=== PATIENT | male | born 1955 | race Caucasian/White ===

== ENCOUNTER 2017-07-03 20:52 | Observation (INO) | payer MEDICARE, MEDICAID ==
[2017-07-03] MEDS: NS 0.9% 1000 ML* 1,000 ML IV SCH (21:52)
[2017-07-03 22:22] LABS: Hematocrit 42 % (42-52); Hemoglobin 14.1 g/dl (14.0-18.0); Mean Corpuscular HGB Conc 34 g/dl (31-36); Mean Corpuscular Hemoglobin 32 pg (27-31); Mean Corpuscular Volume 96 fL (80-94); Mean Platelet Volume 9 um3 (7.4-10.4); Red Blood Count 4.37 10^6/ul (4.0-5.4); Red Cell Distribution Width 15 % (10.5-15); White Blood Count 9.2 10^3/ul (3.5-10.8)
[2017-07-03 22:37] LABS: Albumin 3.8 g/dL (3.2-5.2); BUN/Creatinine Ratio 13.5 (8-20); C Reactive Protein 2.68 mg/L (< 5.00); EGFR African American 93.4 (>60); EGFR Non-African American 72.6 (>60); Globulin 2.5 g/dL (2-4); Magnesium 1.8 mg/dL (1.9-2.7); Potassium 3.8 mmol/L (3.5-5.0); Total Bilirubin 0.4 mg/dL (0.2-1.0); Total Protein 6.3 g/dL (6.4-8.9)
[2017-07-03 22:42] LABS: Troponin I 0.04 ng/mL (<0.04)
[2017-07-03] MEDS ORDERED: Iohexol 300* (CONTRAST) 10 ML SDV IV ONE (22:49)
[2017-07-04 00:35] LABS: Urine Bacteria Absent (Absent); Urine Bilirubin Negative (Negative); Urine Glucose Negative (Negative); Urine Nitrite Negative (Negative)
[2017-07-04] MEDS ORDERED: Acetaminophen TAB* 325 MG PO PRN (00:59)
[2017-07-04] MEDS ORDERED: Albuterol 2.5 MG/3 ML NEB.SOL* (0.083%) INH PRN (00:59)
[2017-07-04] MEDS ORDERED: Magnesium Sulfate 2 GM IV* 2 GM/50 ML BAG IVPB ONE (01:00)
[2017-07-04] MEDS ORDERED: NS 0.9% 1000 ML* 1,000 ML IV SCH (01:00)
[2017-07-04] MEDS ORDERED: Nicotine Inhaler* 10 MG AMP INH PRN (01:00)
[2017-07-04] MEDS ORDERED: Ondansetron INJ* 2 MG/ML VIAL IV PRN (01:00)
[2017-07-04] MEDS ORDERED: Melatonin (NF) 3 MG TAB PO PRN (01:00)
--- NOTE | 2017-07-04 03:12 | ED ---
Anya Barajas Abhishek, scribed for Wolfgang Olvera on 07/03/17 at 2232 . Neurological HPI - HPI Summary HPI Summary: This patient is a 62 year old M presenting to [facility] with a chief complaint of weakness since this morning. The CC is described as constant. The patient rates the pain 4/10 in severity. Pt states pain by movement. Symptoms aggravated by nothing. Symptoms alleviated by nothing. Patient reports fatigue, patient denies fevers, CP, abd pain, CHERRY, cough, N/V/D. PMHx of cardiac arrest, angioplasty and angina. Pt states no PMHx of COPD, and asthma. - History of Current Complaint Chief Complaint: EDWeakness Stated Complaint: WEAKNESS Time Seen by Provider: 07/03/17 22:03 Hx Obtained From: Patient Onset/Duration: Started hours ago - since this morning, Still Present Timing: Constant Pain Intensity: 4 Pain Scale Used: 0-10 Numeric Character: Weak, Other: - fatigue Aggravating: Nothing Alleviating: Nothing Associated Signs and Symptoms: Positive: Weakness. Negative: Headache, Nausea/ Vomiting, Fever, Diarrhea, Chest Pain - Additional Pertinent History Primary Care Physician: [id number] - Allergy/Home Medications Allergies/Adverse Reactions: Allergies Allergy/AdvReac Type Severity Reaction Status Date / Time No Known Allergies Allergy Verified 04/20/13 10:27 PMH/Surg Hx/FS Hx/Imm Hx Endocrine/Hematology History: Denies: Hx Diabetes, Hx Thyroid Disease, Hx Anemia Cardiovascular History: Reports: Hx Angina, Hx Angioplasty, Hx Cardiac Arrest, Hx Hypertension Denies: Hx Aneurysm, Hx Auto Implanted Cardiovert Defib, Hx Hypercholesterolemia, Hx Peripheral Vascular Disease Respiratory History: Denies: Hx Asthma, Hx Chronic Obstructive Pulmonary Disease (COPD) GI History: Reports: Other GI Disorders Denies: Hx Ulcer History: Reports: Hx Benign Prostatic Hyperplasia Musculoskeletal History: Denies: Hx Arthritis, Hx Osteoporosis Sensory History: Denies: Hx Cataracts, Hx Contacts or Glasses, Hx Glaucoma Opthamlomology History: Denies: Hx Cataracts, Hx Contacts or Glasses, Hx Glaucoma Neurological History: Reports: Hx Headaches - daily headaches Denies: Hx Seizures, Hx Transient Ischemic Attacks (TIA) Psychiatric History: Reports: Hx Anxiety, Hx Depression - Surgical History Surgery Procedure, Year, and Place: hernia x3. Fistula. Heart Bypass 2005 - Immunization History Date of Tetanus Vaccine: UTD Date of Influenza Vaccine: NO Infectious Disease History: No Infectious Disease History: Denies: Hx Clostridium Difficile, Hx Hepatitis, Hx Human Immunodeficiency Virus (HIV), Hx of Known/Suspected MRSA, Hx Shingles, Hx Tuberculosis, Hx Known/ Suspected VRE, Hx Known/Suspected VRSA, History Other Infectious Disease, Traveled Outside the [place] in Last 30 Days - Family History Known Family History: Positive: Cardiac Disease - mother and father, Hypertension - father, Other - CVA in father Family History: NON CONTRIBUTORY - Social History Alcohol Use: Rare Substance Use Type: Reports: None, Prescribed Hx Tobacco Use: Yes Smoking Status (MU): Heavy Every Day Tobacco Smoker Type: Cigarettes Amount Used/How Often: 1ppd Review of Systems Positive: Fatigue. Negative: Fever Eyes: Negative ENT: Negative Negative: Chest Pain Negative: Cough Negative: Abdominal Pain, Vomiting, Diarrhea, Nausea Genitourinary: Negative Musculoskeletal: Negative Skin: Negative Positive: Weakness. Negative: Headache Psychological: Normal All Other Systems Reviewed And Are Negative: Yes Physical Exam - Summary Physical Exam Summary: Appearance: Well appearing, no pain distress Skin: warm, dry, reflects adequate perfusion Head/face: normal Eyes: EOMI, BASHIR ENT: Dry mucous membranes Neck: supple, nontender Respiratory: CTA, breath sounds present Cardiovascular: RRR, pulses symmetrical Abdomen: Tenderness in the left lower quadrant Bowel: present Musculoskeletal: normal, strength/ROM intact Neuro: normal, sensory motor intact, A&Ox3 Triage Information Reviewed: Yes Vital Signs On Initial Exam: Initial Vitals Temp Pulse Resp BP Pulse Ox 98.8 F 76 12 128/70 95 07/03/17 21:00 07/03/17 21:00 07/03/17 21:00 07/03/17 21:00 07/03/17 21:00 Vital Signs Reviewed: Yes - Alvaro Coma Scale Coma Scale Total: 15 Diagnostics - Vital Signs Vital Signs Temp Pulse Resp BP Pulse Ox 07/03/17 21:14 95 07/03/17 21:00 98.8 F 76 12 128/70 95 - Laboratory Lab Results: Lab Results 07/03/17 07/03/17 07/03/17 Range/Units 22:15 22:15 22:15 WBC (3.5-10.8) 10^3/ul RBC (4.0-5.4) 10^6/ul Hgb (14.0-18.0) g/dl Hct (42-52) % MCV (80-94) fL MCH (27-31) pg MCHC (31-36) g/dl RDW (10.5-15) % Plt Count (150-450) 10^3/ul MPV (7.4-10.4) um3 Neut % (Auto) (38-83) % Lymph % (Auto) (25-47) % [place] % (Auto) (1-9) % Eos % (Auto) (0-6) % Baso % (Auto) (0-2) % Absolute Neuts (auto) (1.5-7.7) 10^3/ul Absolute Lymphs (auto) (1.0-4.8) 10^3/ul Absolute Monos (auto) (0-0.8) 10^3/ul Absolute Eos (auto) (0-0.6) 10^3/ul Absolute Basos (auto) (0-0.2) 10^3/ul Absolute Nucleated RBC 10^3/ul Nucleated RBC % INR (Anticoag Therapy) 0.92 (0.89-1.11) APTT 30.0 (26.0-36.3) seconds Sodium 138 (133-145) mmol/L Potassium 3.8 (3.5-5.0) mmol/L Chloride 106 (101-111) mmol/L Carbon Dioxide 23 (22-32) mmol/L Anion Gap 9 (2-11) mmol/L BUN 14 (6-24) mg/dL Creatinine 1.04 (0.67-1.17) mg/dL Est GFR ( Amer) 93.4 (>60) Est GFR (Non-Af Amer) 72.6 (>60) BUN/Creatinine Ratio 13.5 (8-20) Glucose 94 (70-100) mg/dL Lactic Acid (0.5-2.0) mmol/L Calcium 9.0 (8.6-10.3) mg/dL Magnesium 1.8 L (1.9-2.7) mg/dL Total Bilirubin 0.40 (0.2-1.0) mg/dL AST 12 L (13-39) U/L ALT 11 (7-52) U/L Alkaline Phosphatase 67 (34-104) U/L Total Creatine Kinase 59 (10-223) U/L CK-MB (CK-2) 2.8 (0.6-6.3) ng/mL Troponin I 0.04 H* (<0.04) ng/mL C-Reactive Protein 2.68 (< 5.00) mg/L B-Natriuretic Peptide 93 ( - 100) pg/mL Total Protein 6.3 L (6.4-8.9) g/dL Albumin 3.8 (3.2-5.2) g/dL Globulin 2.5 (2-4) g/dL Albumin/Globulin Ratio 1.5 (1-3) Lipase 15 (11.0-82.0) U/L TSH 1.00 (0.34-5.60) mcIU/mL Urine Color Urine Appearance Urine pH (5-9) Ur Specific [place] (1.010-1.030) Urine Protein (Negative) Urine Ketones (Negative) Urine Blood (Negative) Urine Nitrate (Negative) Urine Bilirubin (Negative) Urine Urobilinogen (Negative) Ur Leukocyte Esterase (Negative) Urine WBC (Auto) (Absent) Urine RBC (Auto) (Absent) Urine Bacteria (Absent) Urine Glucose (Negative) 07/03/17 07/03/17 07/04/17 Range/Units 22:15 22:15 00:17 WBC 9.2 (3.5-10.8) 10^3/ul RBC 4.37 (4.0-5.4) 10^6/ul Hgb 14.1 (14.0-18.0) g/dl Hct 42 (42-52) % MCV 96 H (80-94) fL MCH 32 H (27-31) pg MCHC 34 (31-36) g/dl RDW 15 (10.5-15) % Plt Count 197 (150-450) 10^3/ul MPV 9 (7.4-10.4) um3 Neut % (Auto) 60.9 (38-83) % Lymph % (Auto) 26.1 (25-47) % [place] % (Auto) 10.3 H (1-9) % Eos % (Auto) 1.8 (0-6) % Baso % (Auto) 0.9 (0-2) % Absolute Neuts (auto) 5.6 (1.5-7.7) 10^3/ul Absolute Lymphs (auto) 2.4 (1.0-4.8) 10^3/ul Absolute Monos (auto) 0.9 H (0-0.8) 10^3/ul Absolute Eos (auto) 0.2 (0-0.6) 10^3/ul Absolute Basos (auto) 0.1 (0-0.2) 10^3/ul Absolute Nucleated RBC 0 10^3/ul Nucleated RBC % 0 INR (Anticoag Therapy) (0.89-1.11) APTT (26.0-36.3) seconds Sodium (133-145) mmol/L Potassium (3.5-5.0) mmol/L Chloride (101-111) mmol/L Carbon Dioxide (22-32) mmol/L Anion Gap (2-11) mmol/L BUN (6-24) mg/dL Creatinine (0.67-1.17) mg/dL Est GFR ( Amer) (>60) Est GFR (Non-Af Amer) (>60) BUN/Creatinine Ratio (8-20) Glucose (70-100) mg/dL Lactic Acid 2.4 H* (0.5-2.0) mmol/L Calcium (8.6-10.3) mg/dL Magnesium (1.9-2.7) mg/dL Total Bilirubin (0.2-1.0) mg/dL AST (13-39) U/L ALT (7-52) U/L Alkaline Phosphatase (34-104) U/L Total Creatine Kinase (10-223) U/L CK-MB (CK-2) (0.6-6.3) ng/mL Troponin I (<0.04) ng/mL C-Reactive Protein (< 5.00) mg/L B-Natriuretic Peptide ( - 100) pg/mL Total Protein (6.4-8.9) g/dL Albumin (3.2-5.2) g/dL Globulin (2-4) g/dL Albumin/Globulin Ratio (1-3) Lipase (11.0-82.0) U/L TSH (0.34-5.60) mcIU/mL Urine Color [place] Urine Appearance Clear Urine pH 5.0 (5-9) Ur Specific [place] > 1.060 H (1.010-1.030) Urine Protein Negative (Negative) Urine Ketones Trace H (Negative) Urine Blood 1+ H (Negative) Urine Nitrate Negative (Negative) Urine Bilirubin Negative (Negative) Urine Urobilinogen Negative (Negative) Ur Leukocyte Esterase Negative (Negative) Urine WBC (Auto) Trace(0-5/hpf) (Absent) Urine RBC (Auto) 3+(>10/hpf) H (Absent) Urine Bacteria Absent (Absent) Urine Glucose Negative (Negative) Result Diagrams: 07/03/17 22:15 07/03/17 22:15 Lab Statement: Any lab studies that have been ordered have been reviewed, and results considered in the medical decision making process. - CT CT A/P CT Interpretation Completed By: Radiologist - CT A/P reveals Colitis. ED physician has reviewed the radiology report and agrees. Course/Dx - Course Course Of Treatment: This patient is a 62 year old M presenting to [facility] with a chief complaint of weakness since this morning. The CC is described as constant. The patient rates the pain 4/10 in severity. Patient reports fatigue. Patient denies fevers, CP, abd pain, CHERRY, cough, N/V/D. CT A/P reveals Colitis. We discussed patient care with Dr. Gasca and he recommended admitting the pt. Patient will be admitted with dizziness, positive troponin and AC. Pt is agreeable with this plan. - Differential Dx Differential Diagnoses Neuro: Positive: Hypovolemia, Other - dizziness/ diverticulitis/acs - Diagnoses Provider Diagnoses: Dizziness, Elevated troponin, ACS (acute coronary syndrome) - Physician Notifications Discussed Care Of Patient With: Tereso Gasca Instructed by Provider To: Admit As Inpatient Discharge - Discharge Plan Condition: Stable Disposition: ADMITTED TO [facility] The documentation as recorded by the Ayna neal Abhishek accurately reflects the service I personally performed and the decisions made by , Wolfgang Olvera.
[2017-07-04] MEDS: NS 0.9% 1000 ML* 1,000 ML IV SCH (03:42)
[2017-07-04] MEDS ORDERED: Mouth Piece, Nicotine* 1 EACH CARTRIDGE INH ONE (05:00)
--- NOTE | 2017-07-04 05:56 | HP ---
H&P (Free Text) History and Physical: PCP: Kristin Hatch MD Date/Time: 07/04/2017 0055 CC: fatigue HPI: Mr Culver is a 62YO male HX CAD, bipolar disorder, PTSD relates he went to be 07/02 feeling his usual, but awoke the morning of 07/03 with extreme fatigue without malaise. He took 2 naps during the day which did not alleviate his fatigue. Upon awakening from the 2nd nap he had a brief period of total body paralysis with lucidity which rapidly spontaneously resolved. He has had period of fatigue similar to this in the past lasting up to 4 days. He had some brief L axillary aching that spontaneously resolved lasting only a few minutes, but denies F/C, sweats, N/V, diarrhea, abdominal pain, palpitations, light- headedness, cough, congestion, SOB, earache, sore throat, changes in bowel/ bladder, changes in speech/swallow, or other issues. PMedHx CAD/4vCABG/MO/stents HTN HLD bipolar disorder PTSD Ambulatory Orders ALPRAZolam TAB* [Xanax TAB*] 1 mg PO TID PRN 08/11/15 Aspirin Low Dose CHEW TAB* [Aspirin Low Dose TAB*] 81 mg PO DAILY 08/11/15 Lisinopril TAB* [Prinivil TAB*] 20 mg PO DAILY 08/11/15 Metoprolol Succinate XL TAB* [Toprol XL TAB*] 50 mg PO DAILY 08/11/15 Nitroglycerin TAB 0.4 MG* 0.4 mg SL Q5M PRN 08/11/15 Pantoprazole Sodium 40 mg PO DAILY 08/11/15 Simvastatin TAB(NF) [Zocor(NF)] 20 mg PO 1700 08/11/15 lamoTRIgine TAB(*) [LaMICtal TAB(*)] 200 mg PO BID 08/11/15 Allergies No Known Allergies Allergy (Verified 04/20/13 10:27) PSurgHx 4vCABG cardiac stent B inguinal hernia repairs Lasik OU SocHx: 1.5PPD cigarettes [id number], denies alcohol & recreational drugs; , lives alone; 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; full code status FamHx: positive for CAD, DM, prostate CA ROS: as above, otherwise reviewed and all were negative vitals: Vital Signs Temp 36.6 C 07/04/17 04:37 Pulse 73 07/04/17 04:37 Resp 16 07/04/17 04:37 BP 133/73 07/04/17 04:37 Pulse Ox 98 07/04/17 04:37 Intake & Output 07/03/17 07/03/17 07/04/17 11:59 23:59 11:59 Weight 95.254 kg 95.368 kg Constitutional: NAD, normally developed, obese white male HEENM: atraumatic; sclera/conjunctiva: anicteric/clear; hearing: clinically intact; oropharynx: clear, mucosa tacky Neck: soft tissue: non-tender; thyroid: normal Pulmonary: clear to auscultation bilaterally, good aeration, no accessory muscle use CV: RR/RR, normal S1S2, no carotid bruit, no jugular venous distention, 2+ B DP/ PT, no edema Abdominal: soft, non-distended, non-tender, no rebound/guarding/rigidity, normoactive bowel sounds, no hepatosplenomegaly or masses, no costovertebral angle tenderness Musculoskeletal: general: grossly intact; gait: stable Integumental: normal appearance and texture of exposed skin Psychiatric orientation: AA&O to PPS affect: flat mood: cooperative/depressed eye contact: poor content: reliable responses: mildly slowed insight: poor Testing: Lab Results 07/03/17 07/03/17 07/03/17 Range/Units 22:15 22:15 22:15 WBC (3.5-10.8) 10^3/ul RBC (4.0-5.4) 10^6/ul Hgb (14.0-18.0) g/dl Hct (42-52) % MCV (80-94) fL MCH (27-31) pg MCHC (31-36) g/dl RDW (10.5-15) % Plt Count (150-450) 10^3/ul MPV (7.4-10.4) um3 Neut % (Auto) (38-83) % Lymph % (Auto) (25-47) % [place] % (Auto) (1-9) % Eos % (Auto) (0-6) % Baso % (Auto) (0-2) % Absolute Neuts (auto) (1.5-7.7) 10^3/ul Absolute Lymphs (auto) (1.0-4.8) 10^3/ul Absolute Monos (auto) (0-0.8) 10^3/ul Absolute Eos (auto) (0-0.6) 10^3/ul Absolute Basos (auto) (0-0.2) 10^3/ul Absolute Nucleated RBC 10^3/ul Nucleated RBC % INR (Anticoag Therapy) 0.92 (0.89-1.11) APTT 30.0 (26.0-36.3) seconds Sodium 138 (133-145) mmol/L Potassium 3.8 (3.5-5.0) mmol/L Chloride 106 (101-111) mmol/L Carbon Dioxide 23 (22-32) mmol/L Anion Gap 9 (2-11) mmol/L BUN 14 (6-24) mg/dL Creatinine 1.04 (0.67-1.17) mg/dL Est GFR ( Amer) 93.4 (>60) Est GFR (Non-Af Amer) 72.6 (>60) BUN/Creatinine Ratio 13.5 (8-20) Glucose 94 (70-100) mg/dL Lactic Acid (0.5-2.0) mmol/L Calcium 9.0 (8.6-10.3) mg/dL Magnesium 1.8 L (1.9-2.7) mg/dL Total Bilirubin 0.40 (0.2-1.0) mg/dL AST 12 L (13-39) U/L ALT 11 (7-52) U/L Alkaline Phosphatase 67 (34-104) U/L Total Creatine Kinase 59 (10-223) U/L CK-MB (CK-2) 2.8 (0.6-6.3) ng/mL Troponin I 0.04 H* (<0.04) ng/mL C-Reactive Protein 2.68 (< 5.00) mg/L B-Natriuretic Peptide 93 ( - 100) pg/mL Total Protein 6.3 L (6.4-8.9) g/dL Albumin 3.8 (3.2-5.2) g/dL Globulin 2.5 (2-4) g/dL Albumin/Globulin Ratio 1.5 (1-3) Lipase 15 (11.0-82.0) U/L TSH 1.00 (0.34-5.60) mcIU/mL Urine Color Urine Appearance Urine pH (5-9) Ur Specific [place] (1.010-1.030) Urine Protein (Negative) Urine Ketones (Negative) Urine Blood (Negative) Urine Nitrate (Negative) Urine Bilirubin (Negative) Urine Urobilinogen (Negative) Ur Leukocyte Esterase (Negative) Urine WBC (Auto) (Absent) Urine RBC (Auto) (Absent) Urine Bacteria (Absent) Urine Glucose (Negative) 07/03/17 07/03/17 07/04/17 Range/Units 22:15 22:15 00:17 WBC 9.2 (3.5-10.8) 10^3/ul RBC 4.37 (4.0-5.4) 10^6/ul Hgb 14.1 (14.0-18.0) g/dl Hct 42 (42-52) % MCV 96 H (80-94) fL MCH 32 H (27-31) pg MCHC 34 (31-36) g/dl RDW 15 (10.5-15) % Plt Count 197 (150-450) 10^3/ul MPV 9 (7.4-10.4) um3 Neut % (Auto) 60.9 (38-83) % Lymph % (Auto) 26.1 (25-47) % [place] % (Auto) 10.3 H (1-9) % Eos % (Auto) 1.8 (0-6) % Baso % (Auto) 0.9 (0-2) % Absolute Neuts (auto) 5.6 (1.5-7.7) 10^3/ul Absolute Lymphs (auto) 2.4 (1.0-4.8) 10^3/ul Absolute Monos (auto) 0.9 H (0-0.8) 10^3/ul Absolute Eos (auto) 0.2 (0-0.6) 10^3/ul Absolute Basos (auto) 0.1 (0-0.2) 10^3/ul Absolute Nucleated RBC 0 10^3/ul Nucleated RBC % 0 INR (Anticoag Therapy) (0.89-1.11) APTT (26.0-36.3) seconds Sodium (133-145) mmol/L Potassium (3.5-5.0) mmol/L Chloride (101-111) mmol/L Carbon Dioxide (22-32) mmol/L Anion Gap (2-11) mmol/L BUN (6-24) mg/dL Creatinine (0.67-1.17) mg/dL Est GFR ( Amer) (>60) Est GFR (Non-Af Amer) (>60) BUN/Creatinine Ratio (8-20) Glucose (70-100) mg/dL Lactic Acid 2.4 H* (0.5-2.0) mmol/L Calcium (8.6-10.3) mg/dL Magnesium (1.9-2.7) mg/dL Total Bilirubin (0.2-1.0) mg/dL AST (13-39) U/L ALT (7-52) U/L Alkaline Phosphatase (34-104) U/L Total Creatine Kinase (10-223) U/L CK-MB (CK-2) (0.6-6.3) ng/mL Troponin I (<0.04) ng/mL C-Reactive Protein (< 5.00) mg/L B-Natriuretic Peptide ( - 100) pg/mL Total Protein (6.4-8.9) g/dL Albumin (3.2-5.2) g/dL Globulin (2-4) g/dL Albumin/Globulin Ratio (1-3) Lipase (11.0-82.0) U/L TSH (0.34-5.60) mcIU/mL Urine Color [place] Urine Appearance Clear Urine pH 5.0 (5-9) Ur Specific [place] > 1.060 H (1.010-1.030) Urine Protein Negative (Negative) Urine Ketones Trace H (Negative) Urine Blood 1+ H (Negative) Urine Nitrate Negative (Negative) Urine Bilirubin Negative (Negative) Urine Urobilinogen Negative (Negative) Ur Leukocyte Esterase Negative (Negative) Urine WBC (Auto) Trace(0-5/hpf) (Absent) Urine RBC (Auto) 3+(>10/hpf) H (Absent) Urine Bacteria Absent (Absent) Urine Glucose Negative (Negative) 07/04/17 07/04/17 Range/Units 01:00 01:00 WBC (3.5-10.8) 10^3/ul RBC (4.0-5.4) 10^6/ul Hgb (14.0-18.0) g/dl Hct (42-52) % MCV (80-94) fL MCH (27-31) pg MCHC (31-36) g/dl RDW (10.5-15) % Plt Count (150-450) 10^3/ul MPV (7.4-10.4) um3 Neut % (Auto) (38-83) % Lymph % (Auto) (25-47) % [place] % (Auto) (1-9) % Eos % (Auto) (0-6) % Baso % (Auto) (0-2) % Absolute Neuts (auto) (1.5-7.7) 10^3/ul Absolute Lymphs (auto) (1.0-4.8) 10^3/ul Absolute Monos (auto) (0-0.8) 10^3/ul Absolute Eos (auto) (0-0.6) 10^3/ul Absolute Basos (auto) (0-0.2) 10^3/ul Absolute Nucleated RBC 10^3/ul Nucleated RBC % INR (Anticoag Therapy) (0.89-1.11) APTT (26.0-36.3) seconds Sodium (133-145) mmol/L Potassium (3.5-5.0) mmol/L Chloride (101-111) mmol/L Carbon Dioxide (22-32) mmol/L Anion Gap (2-11) mmol/L BUN (6-24) mg/dL Creatinine (0.67-1.17) mg/dL Est GFR ( Amer) (>60) Est GFR (Non-Af Amer) (>60) BUN/Creatinine Ratio (8-20) Glucose (70-100) mg/dL Lactic Acid 1.0 (0.5-2.0) mmol/L Calcium (8.6-10.3) mg/dL Magnesium (1.9-2.7) mg/dL Total Bilirubin (0.2-1.0) mg/dL AST (13-39) U/L ALT (7-52) U/L Alkaline Phosphatase (34-104) U/L Total Creatine Kinase (10-223) U/L CK-MB (CK-2) (0.6-6.3) ng/mL Troponin I 0.04 H* (<0.04) ng/mL C-Reactive Protein (< 5.00) mg/L B-Natriuretic Peptide ( - 100) pg/mL Total Protein (6.4-8.9) g/dL Albumin (3.2-5.2) g/dL Globulin (2-4) g/dL Albumin/Globulin Ratio (1-3) Lipase (11.0-82.0) U/L TSH (0.34-5.60) mcIU/mL Urine Color Urine Appearance Urine pH (5-9) Ur Specific [place] (1.010-1.030) Urine Protein (Negative) Urine Ketones (Negative) Urine Blood (Negative) Urine Nitrate (Negative) Urine Bilirubin (Negative) Urine Urobilinogen (Negative) Ur Leukocyte Esterase (Negative) Urine WBC (Auto) (Absent) Urine RBC (Auto) (Absent) Urine Bacteria (Absent) Urine Glucose (Negative) ECG, personally reviewed: NSR rate 70, non-specific ST-T changes diffusely; similar to comparison 08/01/2016 CXR, personally reviewed: stigmata of COPD; no acute process Impression: 62M presenting with severe fatigue found to have a lactic acid of 2.4 & troponin of 0.4 w/ HX CAD DIAGNOSIS & PLAN Primary fatigue : unclear etiology, suspect depression : consider psychiatry consult lactic acidosis, mild : resolved w/ IVFs elevated troponin : trend : supplemental oxygen : recheck ECG in AM hypomagnesemia : replace Secondary CAD/4vCABG/MO/stents : review meds once reconciled HTN : review meds once reconciled HLD : review meds once reconciled bipolar disorder : review meds once reconciled PTSD : review meds once reconciled Admission Rational: observation for fatigue, elevated troponin DVTp: heparin SQ Code Status: full
[2017-07-04] MEDS ORDERED: Omeprazole CAP* 20 MG PO SCH (06:00)
--- NOTE | 2017-07-04 07:26 | RAD ---
HISTORY: Weakness COMPARISONS: August 01, 2016 VIEWS: 1: frontal portable view of the chest at 10:30 PM FINDINGS: LINES AND TUBES: None. CARDIOMEDIASTINAL SILHOUETTE: The cardiomediastinal silhouette is normal for portable technique. PLEURA: The costophrenic angles are sharp. No pleural abnormalities are noted. LUNG PARENCHYMA: The lungs are clear. ABDOMEN: The upper abdomen is clear. There is no subphrenic gas. BONES AND SOFT TISSUES: The patient is status post median sternotomy. IMPRESSION: NO ACTIVE CARDIOPULMONARY DISEASE.
--- NOTE | 2017-07-04 07:38 | RAD ---
CLINICAL HISTORY: Left lower quadrant pain COMPARISON: September 16, 2003 TECHNIQUE: Multiple contiguous axial CT scans were obtained of the abdomen and pelvis after the administration of intravenous contrast. Coronal and sagittal multiplanar reformations are submitted for review. Oral contrast was administered. Delayed images were obtained through the abdomen and pelvis. FINDINGS: LUNG BASES: The lung bases are clear. LIVER: The liver is diffusely low in attenuation compared to the spleen. There is a fluid attenuation rounded lesion of the left lobe of liver most consistent with a hepatic cyst.. BILE DUCTS: There is no intrahepatic or extrahepatic biliary dilatation. GALLBLADDER: The gallbladder is normal, without pericholecystic inflammatory change. PANCREAS: The pancreas is normal, without mass or ductal dilatation. SPLEEN: Normal in size and appearance. UPPER GI TRACT: Evaluation of the gastrointestinal tract is limited by incomplete gastric distention. The upper GI tract is unremarkable. SMALL BOWEL AND MESENTERY: The small bowel is normal in contour, course, and caliber. There is no obstruction or dilatation. COLON: There are multiple diverticula of the sigmoid colon. There is no pericolonic inflammatory change. There is focal mucosal thickening of the sigmoid colon. ADRENALS: Normal bilaterally. KIDNEYS: Simple renal cyst is noted on the right. There is no appreciable arthrosis masses. BLADDER: The bladder is smooth in contour. PELVIC ORGANS: The prostate gland is normal. The seminal vesicles are symmetric. AORTA: There is atherosclerosis of the abdominal aorta with ectasia of the infrarenal abdominal aorta to 2.6 cm. IVC: Unremarkable LYMPH NODES: There is no lymphadenopathy by size criteria. ABDOMINAL WALL: There is no evidence for abdominal wall hernia. BONES AND SOFT TISSUES: There are mild diffuse degenerative changes. OTHER: None IMPRESSION: 1. DIVERTICULOSIS, WITHOUT CT FINDINGS OF DIVERTICULITIS. 2. THERE IS FOCAL MUCOSAL THICKENING OF THE SIGMOID COLON WHICH MAY BE AN ARTIFACT OF INCOMPLETE DISTENTION. RECOMMEND CONSIDERATION OF CORRELATION WITH DIRECT VISUALIZATION. 3. THERE IS ECTASIA OF THE INFRARENAL ABDOMINAL AORTA UP TO 2.6 CM TRANSVERSELY.
[2017-07-04 08:06] LABS: Hematocrit 41 % (42-52); Hemoglobin 13.9 g/dl (14.0-18.0); Mean Corpuscular HGB Conc 34 g/dl (31-36); Mean Corpuscular Hemoglobin 33 pg (27-31); Mean Corpuscular Volume 96 fL (80-94); Mean Platelet Volume 9 um3 (7.4-10.4); Red Blood Count 4.27 10^6/ul (4.0-5.4); Red Cell Distribution Width 15 % (10.5-15); White Blood Count 8.9 10^3/ul (3.5-10.8)
[2017-07-04] MEDS ORDERED: Influenza VAC *QUAD* 2017-18* 0.5 ML SYRINGE IM ONE (09:00)
[2017-07-04] MEDS ORDERED: Docusate CAP* 100 MG PO SCH (09:00)
[2017-07-04] MEDS ORDERED: Ibuprofen TAB* 400 MG PO ONE (11:03)
[2017-07-04] MEDS ORDERED: Naproxen TAB* 250 MG PO ONE (11:04)
[2017-07-04 11:57] VITALS: BP 146/78
--- NOTE | 2017-07-05 01:31 | DS ---
CC: Dr. Hatch * DISCHARGE SUMMARY: DATE OF ADMISSION: 07/04/17 DATE OF DISCHARGE: 07/04/17 PRIMARY CARE PROVIDER: Dr. Hatch. DISCHARGING PROVIDER: GREGORY Milligan. SUPERVISING PHYSICIAN: Jj Sawant MD * (DICTATED BY GREGORY MILLIGAN) PRIMARY DISCHARGE DIAGNOSES: 1. Complaints of fatigue without clear etiology, perhaps secondary to a viral syndrome. 2. Elevated lactate. This is likely secondary to hypovolemia without evidence of sepsis, which is resolved. 3. Mildly elevated troponin in the setting of chronic systolic heart failure without evidence of acute coronary syndrome, perhaps secondary to demand ischemia versus troponin leak. SECONDARY DISCHARGE DIAGNOSES: 1. Chronic systolic heart failure with an EF last measured between 30% and 35% without evidence of acute exacerbation. 2. Coronary artery disease, status post PCI with drug-eluting stent placement in August 2015. 3. Bipolar disorder. 4. Posttraumatic stress disorder. DISCHARGE MEDICATIONS: 1. Aspirin 81 mg p.o. daily. 2. Atorvastatin 80 mg p.o. daily. 3. Duloxetine 30 mg p.o. daily. 4. Lisinopril 20 mg p.o. daily. 5. Metoprolol succinate 50 mg p.o. daily. 6. Nitroglycerin tablet 0.4 mg sublingual every 5 minutes as needed for chest pain. 7. Zantac 300 mg p.o. daily. 8. Brilinta 60 mg p.o. twice daily. Medication changes: None. HOSPITAL IMAGIN. CT of the abdomen and pelvis demonstrates diverticulosis without diverticulitis. 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 2. Chest x-ray shows no acute process. HOSPITAL COURSE: This is a 62-year-old gentleman with chronic systolic heart failure and bipolar depression who presented to the emergency department with complaints of fatigue. The patient reported that he had been excessively fatigued with frequent naps over several days prior to his presentation. He states that he had similar symptoms a week prior that had resolved spontaneously , but then returned again. The patient reports that he recently decreased his Seroquel dosing and has plans to reduce his Cymbalta as he does not feel that continued treatment is necessary for his depression and denies any significant depressive symptoms accompanying his fatigue. After further questioning, he does admit to some associated rhinorrhea and a mild cough and feelings of chills and some generalized weakness. Denied shortness of breath, lower extremity edema or chest pain. Initial labs showed a normal CBC. Comprehensive metabolic panel was unremarkable. Lactic acid was initially elevated at 2.4, magnesium slightly low at 1.8 and troponin slightly elevated at 0.04. Because of these abnormalities, admission was requested. The patient was admitted to a period of observation with continuous telemetry monitoring and followup troponin, which remained at 0.04. Lactic acid improved after IV fluids down to 1.0. The patient does not have any additional focal symptoms. DISPOSITION AND FOLLOWUP PLAN: The patient is being discharged to home without any changes to his home medications. His acute symptoms appear to be consistent with a viral syndrome. Recommend supportive care measures and follow up with primary care provider next week. GREGORY MILLIGAN [id number]/TRINA #: [id number] MARTÍN
[2017-07-05] MEDS ORDERED: Heparin VIAL(*) 5000 UNITS/ML VIAL (FIVE THOUSAND) SUBCUT SCH (06:00)
== END 2017-07-04 13:15 | disposition home or self-care (01) ==
LOC: ED 20:52 → MED 07-04 00:55
PROVIDERS: ADMIT Hospitalist; ATTEND Internal Medicine
DX: R53.83 Other fatigue (principal); R74.8 Abnormal levels of other serum enzymes; I11.0 Hypertensive heart disease with heart failure; I50.22 Chronic systolic (congestive) heart failure; I25.10 Atherosclerotic heart disease of native coronary artery without angina pectoris; F31.9 Bipolar disorder, unspecified; F43.10 Post-traumatic stress disorder, unspecified; E87.2 Acidosis; E83.42 Hypomagnesemia; I25.2 Old myocardial infarction; F17.210 Nicotine dependence, cigarettes, uncomplicated; Z79.82 Long term (current) use of aspirin; Z79.899 Other long term (current) drug therapy; Z23 Encounter for immunization
CPT/HCPCS: 36415; 71010; 74177; 80053; 81003; 81015; 82550; 82553; 83605; 83690; 83735; 83880; 84443; 84484; 85025; 85027; 85610; 85730; 86140; 90471; 90686; 93005; 96361; 96365; 99283; A9270-GY; G0008; G0378; J3475; Q9967

== ENCOUNTER 2018-05-20 16:29 | Inpatient (IN) | payer MEDICARE, MEDICAID ==
[2018-05-20] MEDS ORDERED: Nitroglycerin 2% OINT* 1 GM PAK TOPICAL ONE (16:48)
[2018-05-20] MEDS ORDERED: Aspirin 81 mg CHEW TAB* 81 MG TAB.CHEW PO ONE (16:48)
--- OUTSIDE RECORDS SUMMARY | 2018-05-20 16:58 | XMS REPORT ---
:1955 External Reference #:[id number] Author Organization [employer] Address [address] [place] [address] Phone [phone] Care Team Providers Name Role Phone Tito Hatch MD Primary Care Physician Unavailable Payers Type Date Identification Numbers Payment Provider Subscriber Medicare Primary Effective: Policy Number: Medicare Emmanuel Culver 1996 [id number] PayID: [id number] [address] [place] [address] [facility] Policy Number: [id number] Medicaid Emmanuel Culver Group Name: 1 1 [address] PayID: [id number] [place] [address] Problems Date Description Provider Status Onset: 12/27/2014 Dyspnea Citlali Leigh MD Active Onset: 12/27/2014 Tobacco user Citlali Leigh MD Active Onset: 05/04/2018 Familial hypercholesterolemia Prachi Hunt M.D. Active Onset: 05/04/2018 Arteriosclerosis of coronary artery Prachi Hunt M.D. Active bypass graft Onset: 05/04/2018 Chronic ischemic heart disease Prachi Hunt M.D. Active Onset: 07/21/2017 Chronic systolic dysfunction of left Juliann Mendez MD, Active ventricle [facility] Onset: 07/21/2017 Old myocardial infarction Juliann Mendez MD, Active [facility] Family History Date Family Member(s) Problem(s) Comments Father heart disease,cancer Mother Heart Disease Siblings 2 brothers both had prostate cancer, 1 still living,1 sister a&w Social History Type Date Description Comments Marital Status Lives With Alone Cigarette Use Patient is a current cigarette smoker, smokes every day Cigarette Use Current Cigarette Smoker 1 1/2 Packs Daily ETOH Use Denies alcohol use Smoking Patient is a current smoker, smokes a pack and a half a smokes every day day. Recreational Drug Use Denies Drug Use Daily Caffeine Consumes on average 5-10 cups of regular coffee per day Exercise Type/Frequency Does not exercise Allergies, Adverse Reactions, Alerts Date Description Reaction Status Severity Comments 02/23/2003 NKDA active Medications Medication Date Status Form Strength Qnty SIG Indications Ordering Provider Rosuvastatin Active Tablets 5mg 30tabs 1 tab by E78.01 Prachi Calcium 018 mouth Rock, every M.D. -- night Lisinopril Active Tablets 40mg 90tabs 1 by Juliann TBettina 018 mouth Sodums, every day SIMEON KUMAR, FSCAI Nitrostat Active Tablets 0.4mg 30tabs one sl Juliann Platt 018 Sub q5min up Sodums, to 3 SIMEON KUMAR, doses as FSCAI needed Brilinta Active Tablets 60mg 180tab 1 by I21.02 Juliann TBettina 016 s mouth Sodums, twice a SIMEON KUMAR, day FSCAI Toprol XL Active Tablets ER 100mg 90tabs 1 by I50.22 Juliann TBettina 016 24HR mouth Sodums, every day SIMEON KUMAR, FSCAI Toprol XL Active Tablets ER 50mg 90tabs i by I50.22 Juliann TBettina 016 24HR mouth Sodums, daily SIMEON KUMAR, with FSC toprol xl 100 mg daily for total of 150 mg daily Aspirin Adult Active 81mg daily Unknown Low Dose 000 Xanax Active 1mg prn tid Unknown 000 Lamotrigine Active Tablets 200mg 1/2 Unknown 000 tablet by mouth daily ( as of 03/05/18) Seroquel Active Tablets 300mg 1 tablet Unknown 000 by mouth every evening Duloxetine HCL Active Caps DR 30mg /2 by Unknown 000 Part mouth every day PM Furosemide Active Tablets 20mg 30tabs take one Marcis T. 000 tablet by Sodums, mouth SIMEON KUMAR, thu, thu FSCAI and thu Ranitidine HCL Active Tablets 300mg 1 by Unknown 000 mouth every day Metamucil Active Powder 58.6% 2 tsp in Unknown Smooth Texture 000 8 oz water three times daily Lisinopril Hx Tablets 10mg 30tabs 1 by Juliann Platt 018 - mouth Sodums, every day SIMEON KUMAR, 018 with 20 FSCAI mg for total of 30 mg daily Toprol XL Hx Tablets ER 100mg 90tabs 1 by I50.22 Juliann Platt 016 - 24HR mouth Sodums, every day SIMEON KUMAR, 016 [facility] Toprol XL Hx Tablets ER 50mg 90tabs I po I50.23 Juliann Platt 015 - 24HR daily Sodums, SIMEON KUMAR, 016 [facility] Brilinta Hx Tablets 90mg 180tab 1 tab by I50.23 Juliann Platt 015 - s mouth Sodums, twice a SIMEON KUMAR, 017 day FSCAI Prilosec Hx Capsules 20mg 60caps One qd Unknown - 015 Effexor XR Hx Capsules 75mg 30caps One qd Unknown - 015 Trazodone Hx Tablets 50mg 60tabs One bid Unknown - 015 Metoprolol Hx 50mg Unknown Tartrate 000 - 015 Nitrolingual Hx prn Unknown 000 - 018 Pantoprazole Hx 40mg daily Unknown Sodium 000 - 016 Lisinopril Hx Tablets 20mg 90tabs 1 tab by Juliann Platt 000 - mouth Sodums, daily SIMEON KUMAR, 018 [facility] Hydrocodone-Erasmo Hx 5-500 Unknown taminophen 000 - 015 Atorvastatin Hx Tablets 80mg 90tabs 1 by Juliann Platt Calcium 000 - mouth Sodums, every day SIMEON KUMAR, 018 FSCAI Ranitidine HCL 0 Hx Capsules 300mg 1 cap by Unknown 000 - mouth every 017 morning Fibercon 0 Hx Tablets 625mg 3 tablets Unknown 000 - 3 times daily 018 Medications Administered in Office Medication Date Status Form Strength Qnty SIG Indications Ordering Provider Inj, Administered Injection Bentanner Castillo Regadenoson, 017 Mack, 0.1 MG Carmela, SIMEON, KIMBER Technetium TC Administered Injection Ben Jonathan 99M 017 Mack TetrofjamalinCarmela, SIMEON, Per Unit Dose KIMBER Up To 40 Millicuries Vital Signs Date Vital Result Comment 05/04/2018 Height 69 inches 5'9" Weight 218.00 lb with shoes Heart Rate 74 /min BP Systolic Sitting 94 mmHg Lue lg cuff BP Diastolic Sitting 60 mmHg Lue lg cuff BP Systolic Standing 102 mmHg Lue lg cuff BP Diastolic Standing 70 mmHg Lue lg cuff Respiratory Rate 18 /min BMI (Body Mass Index) 32.2 kg/m2 Ejection Fraction 30-35% date 07/16/17 echo 03/02/2018 Height 69 inches 5'9" Weight 219.00 lb w/ shoes Heart Rate 74 /min BP Systolic Sitting 110 mmHg lue lg cuff BP Diastolic Sitting 68 mmHg lue lg cuff BP Systolic Standing 118 mmHg lue lg cuff BP Diastolic Standing 68 mmHg lue lg cuff Respiratory Rate 18 /min BMI (Body Mass Index) 32.3 kg/m2 Ejection Fraction 30-35% echo 07/16/17 02/08/2018 Height 69 inches 5'9" Weight 222.00 lb w/ shoes Heart Rate 72 /min reg BP Systolic Sitting 110 mmHg Lue, lg cuff BP Diastolic Sitting 72 mmHg Lue, lg cuff Respiratory Rate 26 /min BMI (Body Mass Index) 32.8 kg/m2 Ejection Fraction 30-35% as of 07/2017 echo 07/21/2017 Height 69 inches 5'9" Weight 209.00 lb w/shoes Heart Rate 74 /min 80 standing BP Systolic Sitting 112 mmHg LA reg cuff BP Diastolic Sitting 68 mmHg LA reg cuff BP Systolic Standing 110 mmHg LA reg cuff BP Diastolic Standing 74 mmHg LA reg cuff BMI (Body Mass Index) 30.9 kg/m2 Ejection Fraction 30-35% Echo 07/16/17 07/13/2017 Height 69 inches 5'9" Weight 212.00 lb w/ shoes Heart Rate 72 /min BP Systolic Sitting 130 mmHg lue reg cuff BP Diastolic Sitting 80 mmHg lue reg cuff BP Systolic Standing 134 mmHg lue reg cuff BP Diastolic Standing 82 mmHg lue reg cuff Respiratory Rate 18 /min BMI (Body Mass Index) 31.3 kg/m2 Ejection Fraction 30-35% echo 10/17/15 08/11/2016 Height 69 inches 5'9" Weight 207.00 lb Heart Rate 70 /min 76 BP Systolic Sitting 102 mmHg right arm, reg cuff BP Diastolic Sitting 64 mmHg right arm, reg cuff BP Systolic Standing 92 mmHg right arm, reg cuff BP Diastolic Standing 62 mmHg right arm, reg cuff Respiratory Rate 20 /min BMI (Body Mass Index) 30.6 kg/m2 Ejection Fraction 30-35% 10/17/15 02/25/2016 Height 69 inches 5'9" Weight 205.00 lb Heart Rate 70 /min 72 BP Systolic Sitting 106 mmHg left arm, reg cuff BP Diastolic Sitting 76 mmHg left arm, reg cuff BP Systolic Standing 94 mmHg left arm, reg cuff BP Diastolic Standing 70 mmHg left arm, reg cuff Respiratory Rate 24 /min BMI (Body Mass Index) 30.3 kg/m2 Ejection Fraction 30-35% 10/17/15 10/22/2015 Height 69 inches 5'9" Weight 213.00 lb Heart Rate 86 /min 88 BP Systolic Sitting 120 mmHg right arm, reg cuff BP Diastolic Sitting 72 mmHg right arm, reg cuff BP Systolic Standing 118 mmHg right arm, reg cuff BP Diastolic Standing 70 mmHg right arm, reg cuff BMI (Body Mass Index) 31.5 kg/m2 Ejection Fraction 30-35% 08-13-15 09/26/2015 Height 69 inches 5'9" Weight 215.00 lb Heart Rate 102 /min 102 BP Systolic Sitting 120 mmHg left arm, reg cuff BP Diastolic Sitting 70 mmHg left arm, reg cuff BP Systolic Standing 110 mmHg left arm, reg cuff BP Diastolic Standing 70 mmHg left arm, reg cuff Respiratory Rate 24 /min BMI (Body Mass Index) 31.7 kg/m2 Ejection Fraction 30-35% 08/17/15 08/27/2015 Height 69 inches 5'9" Weight 214.00 lb Heart Rate 88 /min 98 BP Systolic Sitting 110 mmHg right arm, reg cuff BP Diastolic Sitting 70 mmHg right arm, reg cuff BP Systolic Standing 100 mmHg right arm, reg cuff BP Diastolic Standing 66 mmHg right arm, reg cuff Respiratory Rate 16 /min BMI (Body Mass Index) 31.6 kg/m2 Ejection Fraction 30-35% 08/17/15 12/27/2014 Height 69 inches 5'9" Weight 236.38 lb Heart Rate 74 /min BP Systolic Sitting 120 mmHg BP Diastolic Sitting 80 mmHg Body Temperature 98.3 F O2 % BldC Oximetry 95 % BMI (Body Mass Index) 34.9 kg/m2 Neck Circumference in inches 18 02/24/2003 Height 69 inches Weight 201.00 lb Heart Rate 84 /min BP Systolic Sitting 138 mmHg BP Diastolic Sitting 80 mmHg BP Systolic Standing 148 mmHg BP Diastolic Standing 88 mmHg BMI (Body Mass Index) 29.7 kg/m2 Results Test Date Test Result H/L Range Note Laboratory test finding 05/04/2018 Creatine Kinase(CK) <pending> Basic Metabolic Panel 02/08/2018 Sodium 139 mmol/L 139-145 Potassium 4.2 mmol/L 3.5-5.0 Chloride 105 mmol/L 101-111 Co2 Carbon Dioxide 24 mmol/L 22-32 Anion Gap 10 mmol/L 2-11 Glucose 100 mg/dL 70-100 Blood Urea Nitrogen 18 mg/dL 6-24 Creatinine 1.18 mg/dL High 0.67-1.17 BUN/Creatinine Ratio 15.3 8-20 Calcium 9.2 mg/dL 8.6-10.3 Egfr Non- 62.8 >60 Egfr 80.7 >60 1 CBC Auto Diff 02/08/2018 White Blood Count 10.1 10^3/uL 3.5-10.8 Red Blood Count 4.65 10^6/uL 4.0-5.4 Hemoglobin 15.4 g/dL 14.0-18.0 Hematocrit 44 % 42-52 Mean Corpuscular Volume 95 fL High 80-94 Mean Corpuscular Hemoglobin 33 pg High 27-31 Mean Corpuscular HGB Conc 35 g/dL 31-36 Red Cell Distribution Width 15 % 10.5-15 Platelet Count 223 10^3/uL 150-450 Mean Platelet Volume 9.3 um3 7.4-10.4 Abs Neutrophils 7.1 10^3/uL 1.5-7.7 Abs Lymphocytes 1.9 10^3/uL 1.0-4.8 Abs Monocytes 0.9 10^3/uL High 0-0.8 Abs Eosinophils 0.1 10^3/uL 0-0.6 Abs Basophils 0.1 10^3/uL 0-0.2 Abs Nucleated RBC 0 10^3/uL Granulocyte % 70.0 % 38-83 Lymphocyte % 18.5 % Low 25-47 Monocyte % 9.4 % High 0-7 Eosinophil % 1.3 % 0-6 Basophil % 0.8 % 0-2 Nucleated Red Blood Cells % 0.1 Laboratory test finding 02/08/2018 B-Type Natriuretic Peptide BNP 84 pg/mL 2 Aldolase 6.4 U/L <7.7 3 Lipid Profile (Trig/Chol/HDL) 11/14/2016 Triglycerides 144 mg/dL 4 Cholesterol 132 mg/dL 5 HDL Cholesterol 29.5 mg/dL 6 LDL Cholesterol 74 mg/dL 7 Basic Metabolic Panel 02/19/2016 Sodium 139 mmol/L 133-145 Potassium 4.5 mmol/L 3.5-5.0 Chloride 106 mmol/L 101-111 Co2 Carbon Dioxide 25 mmol/L 22-32 Anion Gap 8 mmol/L 2-11 Glucose 103 mg/dL High 70-100 Blood Urea Nitrogen 14 mg/dL 6-24 Creatinine 0.98 mg/dL 0.67-1.17 BUN/Creatinine Ratio 14.3 8-20 Calcium 9.5 mg/dL 8.6-10.3 Egfr Non- 78.3 >60 Egfr 100.7 >60 8 Laboratory test finding 02/19/2016 B-Type Natriuretic 141 pg/mL High 9 Peptide BNP Basic Metabolic Panel 08/11/2015 Sodium 134 mmol/L 133-145 Potassium 4.3 mmol/L 3.5-5.0 Chloride 103 mmol/L 101-111 Co2 Carbon Dioxide 23 mmol/L 22-32 Anion Gap 8 mmol/L 2-11 Glucose 137 mg/dL High 70-100 Blood Urea Nitrogen 11 mg/dL 6-24 Creatinine 0.77 mg/dL 0.67-1.17 BUN/Creatinine Ratio 14.3 8-20 Calcium 8.8 mg/dL 8.6-10.3 Egfr Non- 103.4 >60 Egfr 133.0 >60 10 Lipid Profile (Trig/Chol/HDL) 08/11/2015 Triglycerides 118 mg/dL 11 Cholesterol 122 mg/dL 12 HDL Cholesterol 31.5 mg/dL 13 LDL Cholesterol 67 mg/dL 14 Laboratory test finding 08/11/2015 Magnesium 1.8 mg/dL Low 1.9-2.7 Creatine Kinase 465 U/L High 10-223 CKMB 08/11/2015 CKMB ng/mL 98.1 ng/mL High 0.6-6.3 Laboratory test finding 08/11/2015 Creatine Kinase(CK) 1493 U/L High 10- 223 CKMB > 301.0 ng/mL High 0.6-6.3 Troponin-I (TnI) 20.74 ng/mL High <0.03 15 CBC No Diff 08/11/2015 White Blood Count 14.1 10^3/uL High 4.8-10.8 Red Blood Count 5.22 10^6/uL 4.0-5.4 Hemoglobin 16.4 g/dL 14.0-18.0 Hematocrit 49 % 42-52 Mean Corpuscular Volume 95 fL High 80-94 Mean Corpuscular Hemoglobin 31 pg 27-31 Mean Corpuscular HGB Conc 33 g/dL 31-36 Red Cell Distribution Width 14 % 10.5-15 Platelet Count 242 10^3/uL 150-450 Mean Platelet Volume 8 um3 7.4-10.4 Laboratory test finding 08/11/2015 Troponin I 2.97 ng/mL High <0.03 16 Laboratory test finding 08/11/2015 Troponin-I (TnI) 0.30 ng/mL High <0.03 17 Potassium 4.3 mmol/L 3.5-5.0 Laboratory test finding 08/11/2015 Troponin-I (TnI) 0.04 ng/mL High <0.03 18 Myoglobin 32.4 ng/mL 17.4-105.7 B-Type Natriuretic Peptide BNP 31 pg/mL 19 CKMB 5.8 ng/mL 0.6-6.3 Inr/Protime 0.98 0.89-1.11 Partial Thrombo Time PTT 182.0 seconds High 26.0-36.3 20 Potassium Redraw 2.9 mmol/L Low 3.5-5.0 Ast Redraw 9 U/L Low 13-39 Type & Screen 08/11/2015 Patient Blood Type A Positive Antibody Screen NEGATIVE Laboratory test finding 08/11/2015 LDL Cholesterol Direct 73 mg/dL 21 Creatine Kinase(CK) 81 U/L 10-223 Comp Metabolic Panel 08/11/2015 Sodium 137 mmol/L 133-145 Chloride 105 mmol/L 101-111 Co2 Carbon Dioxide 23 mmol/L 22-32 Glucose 150 mg/dL High 70-100 Blood Urea Nitrogen 12 mg/dL 6-24 Creatinine 0.86 mg/dL 0.67-1.17 BUN/Creatinine Ratio 14.0 8-20 Calcium 8.9 mg/dL 8.6-10.3 Total Protein 6.5 g/dL 6.4-8.9 Albumin 3.8 g/dL 3.2-5.2 Globulin 2.7 g/dL 2-4 Albumin/Globulin Ratio 1.4 1-3 Total Bilirubin 0.40 mg/dL 0.2-1.0 Alkaline Phosphatase 59 U/L 34-104 Alt 14 U/L 7-52 Egfr Non- 91.0 >60 Egfr 117.1 >60 22 Anion Gap TNP mmol/L 2-11 Laboratory test finding 08/11/2015 Lactic Acid 2.0 mmol/L 0.5-2.2 CBC Auto Diff 08/11/2015 White Blood Count 10.0 10^3/uL 4.8-10.8 Red Blood Count 4.91 10^6/uL 4.0-5.4 Hemoglobin 15.9 g/dL 14.0-18.0 Hematocrit 47 % 42-52 Mean Corpuscular Volume 96 fL High 80-94 Mean Corpuscular Hemoglobin 32 pg High 27-31 Mean Corpuscular HGB Conc 34 g/dL 31-36 Red Cell Distribution Width 14 % 10.5-15 Platelet Count 231 10^3/uL 150-450 Mean Platelet Volume 8 um3 7.4-10.4 Abs Neutrophils 6.4 10^3/uL 1.5-7.7 Abs Lymphocytes 2.6 10^3/uL 1.0-4.8 Abs Monocytes 0.8 10^3/uL 0-0.8 Abs Eosinophils 0.2 10^3/uL 0-0.6 Abs Basophils 0.1 10^3/uL 0-0.2 Abs Nucleated RBC 0 10^3/uL Granulocyte % 63.8 % 38-83 Lymphocyte % 25.9 % 25-47 Monocyte % 7.9 % 1-9 Eosinophil % 1.8 % 0-6 Basophil % 0.6 % 0-2 Nucleated Red Blood Cells % 0 Arterial Blood Gas 08/11/2015 PH Arterial 7.37 7.35-7.45 Pco2 Arterial 36 mmHg 35-45 Po2 Arterial 295 mmHg High 80-100 O2 Saturation Arterial 99.7 % High 95-98 Base Excess Arterial -3.8 Low -2.0-2.0 23 Hco3 Arterial 21.8 mmol/L 19-31 1 Because ethnic data is not always readily available, this report includes an eGFR for both -Americans and non- Americans. The National Kidney Disease Education Program (NKDEP) does not endorse the use of the MDRD equation for patients that are not between the ages of 18 and 70, are , have extremes of body size, muscle mass, or nutritional status, or are non- or non-. According to the National Kidney Foundation, irrespective of diagnosis, the stage of the disease is based on the level of kidney function: Stage Description GFR(mL/min/1.73 m(2)) 1 Kidney damage with normal or decreased GFR 90 2 Kidney damage with mild decrease in GFR 60-89 3 Moderate decrease in GFR 30-59 4 Severe decrease in GFR 15-29 5 Kidney failure <15 (or dialysis) 2 >100 to <200 pg/mL: likely compensated congestive heart failure (CHF) 200 to 400 pg/mL: likely moderate CHF >400 pg/mL: likely moderate to severe CHF 3 Test Performed by: [address] [address] 4 Desirable <150 Borderline high 150-199 High 200-499 Very High >500 5 Desirable <200 Borderline high 200-239 High >239 6 Low <40 Desirable: 40-60 High: >60 7 Desirable: <100 mg/dL Near Optimal: 100-129 mg/dL Borderline High: 130-159 mg/dL High: 160-189 mg/dL Very High: >189 mg/dL 8 Because ethnic data is not always readily available, this report includes an eGFR for both -Americans and non- Americans. The National Kidney Disease Education Program (NKDEP) does not endorse the use of the MDRD equation for patients that are not between the ages of 18 and 70, are , have extremes of body size, muscle mass, or nutritional status, or are non- or non-. According to the National Kidney Foundation, irrespective of diagnosis, the stage of the disease is based on the level of kidney function: Stage Description GFR(mL/min/1.73 m(2)) 1 Kidney damage with normal or decreased GFR 90 2 Kidney damage with mild decrease in GFR 60-89 3 Moderate decrease in GFR 30-59 4 Severe decrease in GFR 15-29 5 Kidney failure <15 (or dialysis) 9 >100 to <200 pg/mL: likely compensated congestive heart failure (CHF) 200 to 400 pg/mL: likely moderate CHF >400 pg/mL: likely moderate to severe CHF 10 Because ethnic data is not always readily available, this report includes an eGFR for both -Americans and non- Americans. The National Kidney Disease Education Program (NKDEP) does not endorse the use of the MDRD equation for patients that are not between the ages of 18 and 70, are , have extremes of body size, muscle mass, or nutritional status, or are non- or non-. According to the National Kidney Foundation, irrespective of diagnosis, the stage of the disease is based on the level of kidney function: Stage Description GFR(mL/min/1.73 m(2)) 1 Kidney damage with normal or decreased GFR 90 2 Kidney damage with mild decrease in GFR 60-89 3 Moderate decrease in GFR 30-59 4 Severe decrease in GFR 15-29 5 Kidney failure <15 (or dialysis) 11 Desirable <150 Borderline high 150-199 High 200-499 Very High >500 12 Desirable <200 Borderline high 200-239 High >239 13 Low <40 Desirable: 40-60 High: >60 14 Desirable: <100 mg/dL Near Optimal: 100-129 mg/dL Borderline High: 130-159 mg/dL High: 160-189 mg/dL Very High: >189 mg/dL 15 Result TnIDx:20.74 Called to [id number] at: 12:10:44 by:[email or web address] Read back by:[email or web address] Reference Range and Interpretation: TnI (ng/mL) Interpretation Less Than 0.03 ng/mL Not supportive of diagnosis of UT 0.03 - 0.50 ng/mL Indeterminate: suggest serial studies if clinically indicated. Greater than 0.5 ng/mL Consistent with diagnosis of UT 16 Result TnIDx:2.97 Called to GINNA at: 07:22:06 by:[email or web address] Read back by:GINNA Reference Range and Interpretation: TnI (ng/mL) Interpretation Less Than 0.03 ng/mL Not supportive of diagnosis of UT 0.03 - 0.50 ng/mL Indeterminate: suggest serial studies if clinically indicated. Greater than 0.5 ng/mL Consistent with diagnosis of UT 17 Reference Range and Interpretation: TnI (ng/mL) Interpretation Less Than 0.03 ng/mL Not supportive of diagnosis of UT 0.03 - 0.50 ng/mL Indeterminate: suggest serial studies if clinically indicated. Greater than 0.5 ng/mL Consistent with diagnosis of UT 18 Reference Range and Interpretation: TnI (ng/mL) Interpretation Less Than 0.03 ng/mL Not supportive of diagnosis of UT 0.03 - 0.50 ng/mL Indeterminate: suggest serial studies if clinically indicated. Greater than 0.5 ng/mL Consistent with diagnosis of UT 19 >100 to <200 pg/mL: likely compensated congestive heart failure (CHF) 200 to 400 pg/mL: likely moderate CHF >400 pg/mL: likely moderate to severe CHF 20 Verbal to [id number] by [id number] at 0130 on 08/11/15. Results read back accurately. 21 Desirable: <100 mg/dL Near Optimal: 100-129 mg/dL Borderline High: 130-159 mg/dL High: 160-189 mg/dL Very High: >189 mg/dL 22 Because ethnic data is not always readily available, this report includes an eGFR for both -Americans and non- Americans. The National Kidney Disease Education Program (NKDEP) does not endorse the use of the MDRD equation for patients that are not between the ages of 18 and 70, are , have extremes of body size, muscle mass, or nutritional status, or are non- or non-. According to the National Kidney Foundation, irrespective of diagnosis, the stage of the disease is based on the level of kidney function: Stage Description GFR(mL/min/1.73 m(2)) 1 Kidney damage with normal or decreased GFR 90 2 Kidney damage with mild decrease in GFR 60-89 3 Moderate decrease in GFR 30-59 4 Severe decrease in GFR 15-29 5 Kidney failure <15 (or dialysis) 23 Reference ranges based on room air. Procedures Date CPT Code Description Status 05/04/2018 12971 EKG Tracing & Interpretation Completed 02/08/2018 73613 EKG Tracing & Interpretation Completed 07/17/2017 53645 Stress Test Completed 07/17/2017 43980 Myocardial Perfusion Imaging Tomographic (Spect) Completed Multiple Studies 07/16/2017 76178 ECHO Transthorasic Realtime 2D W Doppler & Color Flow Completed Hosp 07/13/2017 62462 EKG Tracing & Interpretation Completed 08/11/2016 49165 EKG Tracing & Interpretation Completed 10/17/2015 42856 ECHO Transthoracic, Real-Time 2D With Doppler And Color Completed Flow 08/27/2015 46576 EKG Tracing & Interpretation Completed 08/20/2015 51700 EKG, Interpretation Only Completed 08/17/2015 06468 ECHO Transthorasic Realtime 2D W Doppler & Color Flow Completed Hosp 08/17/2015 42865 EKG, Interpretation Only Completed 08/14/2015 01187 EKG, Interpretation Only Completed 08/14/2015 54646 ECHO Transthorasic Realtime 2D W Doppler & Color Flow Completed Hosp 08/13/2015 46770 ECHO Transthorasic Realtime 2D W Doppler & Color Flow Completed Hosp 08/13/2015 66334 EKG, Interpretation Only Completed 08/12/2015 56012 EKG, Interpretation Only Completed 08/12/2015 23492 Insertion Of Intra-Aortic Balloon Assist Device Completed Percutaneous 08/11/2015 75599 Coronary Angiography With Left Heart Catheterization Completed 08/11/2015 34529 EKG, Interpretation Only Completed 08/11/2015 72653 Intra-Aortic Balloon Insertion Through Femoral Artery Completed 03/01/2003 67572 Color Doppler Completed 03/01/2003 91304 Pulse Doppler & Continuous Wave Completed 03/01/2003 82710 Echocardiogram Completed 02/28/2003 95278 Holter Monitor Interpretation Completed 02/24/2003 80089 EKG Tracing & Interpretation Completed Encounters Type Date Location Provider CPT E/M Dx Office Visit 05/04/2018 9:00a [facility] Prachi Hunt M.D. 52690 I25.2 Network Developer I25.5 I25.810 Z72.0 E78.01 Office Visit 03/02/2018 3:00p [facility] Juliann Mendez, 49678 I25.2 Network Developer AT [facility] SIMEON KUMAR, FSCAI I50.22 Office Visit 02/08/2018 11:20a [facility] Juliann Mendez, 02796 I25.2 Network Developer AT [facility] SIMEON KUMAR, FSCAI I50.22 Office Visit 07/21/2017 3:00p [facility] Juliann Mendez, 24900 I25.2 Network Developer AT [facility] SIMEON KUMAR, FSCAI I50.22 Office Visit 07/13/2017 3:20p [facility] Prashant Ward M.D., 08094 R06.02 Network Developer AT [facility] SIMEON, FSCAI Office Visit 07/04/2017 10:37a [facility]linda Contreras 76652 R53.83 Hospitalists GREGORY Kelly R79.89 R74.8 Office Visit 08/11/2016 8:20a [facility] Juliann Mendez, 74927 I21.02 Network Developer AT [facility] SIMEON KUMAR, FSCAI I50.22 Office Visit 02/25/2016 8:20a [facility] Juliann Mendez, 37697 I50.22 Network Developer AT [facility] SIMEON KUMAR, FSCAI I21.02 F17.200 I50.23 Office Visit 10/22/2015 10:00a [facility] Juliann Mendez, 26197 I21.02 Network Developer AT [facility] SIMEON KUMAR, FSCAI I50.22 F43.12 F17.200 Office Visit 09/26/2015 8:40a [facility] Juliann Mendez, 97052 I21.02 Network Developer AT [facility] SIMEON KUMAR, FSCAI I50.22 Office Visit 08/27/2015 2:40p [facility] Juliann Mendez, 68667 I21.02 Network Developer AT [facility] SIMEON KUMAR, FSCAI I50.23 Office Visit 08/22/2015 12:54p [facility] Juliann Mendez, 47146 I21.02 Network Developer AT [facility] SIMEON KUMAR, FSCAI I50.23 F43.12 Office Visit 08/20/2015 3:41p [facility]pc Kip Vidal D.O. 15679 I21.02 Hospitalists F41.9 F10.231 Office Visit 08/20/2015 12:52p [facility] Juliann Mendez, 59925 I21.02 Network Developer AT [facility], [facility], [facility] Office Visit 08/19/2015 3:40p [facility],linda Vidal D.O. 85324 I21.02 Hospitalists F41.9 I25.10 Office Visit 08/19/2015 2:17p [facility] Prashant Ward M.D., 86549 I21.02 Network Developer AT [facility], [facility] Office Visit 08/18/2015 2:16p [facility] Prashant Ward M.D., 84647 I21.02 Network Developer AT [facility], [facility] Office Visit 08/18/2015 3:39p [facility],linda Vidal D.O. 74574 I21.02 Hospitalists J96.01 R45.1 Office Visit 08/17/2015 3:38p [facility],linda Vidal D.O. 09615 I21.02 Hospitalists J96.01 R45.1 Office Visit 08/16/2015 3:37p [facility],linda Vidal D.O. 85909 I21.02 Hospitalists J96.01 I25.10 R45.1 Office Visit 08/16/2015 1:12p [facility] Prashant Ward M.D., 76144 I21.02 Network Developer AT [facility], [facility] Office Visit 08/15/2015 3:36p [facility],linda Vidal D.O. 65776 J96.01 Hospitalists I21.02 F10.231 I73.89 Office Visit 08/15/2015 1:11p [facility] Prashant Ward M.D., 36352 I21.02 Network Developer AT [facility], [facility] Office Visit 08/14/2015 3:36p [facility],linda Gaming 50710 I21.02 Hospitalists Charlene Wakefield R57.0 J96.01 F10.231 Office Visit 08/13/2015 3:34p [facility],linda Gaming 21984 I21.02 Hospitalists Charlene Wakefield R57.0 J96.01 F10.231 Office Visit 08/13/2015 8:23a [facility] Prashant Ward M.D., 72788 I21.02 [facility] AT [facility], [facility] Office Visit 08/12/2015 12:51p [facility] Patrickeric TannerBettina Mendez, 46712 I21.02 [facility] AT [facility] , [place], [facility] Office Visit 08/11/2015 10:42a [facility] Juliann Mendez, 44828 I21.02 [facility] AT [facility] , [facility], [facility] Office Visit 12/27/2014 11:30a [place] [address] 786.05 Services Of [facility] 305.1 Plan of Care Future Appointment(s):06/04/2018 8:30 am - Danuta Holt N.P. at [facility]05/04/2018 - Prachi Hunt M.D.I25.2 Old myocardial lgjzeoossaO38.5 Ischemic cardiomyopathyComments:Your heart strength is about 1/ 2 of normal.Heart pumps blood, blood has oygen. When you walk or carry, your body wants more oxygen, but your heart can't get enough extra out, so you feel short of breath.This weakness can also lead to fluid building up in your lungs, but today your lungs are clear, sothe medicines are doing a good job.I25.810 Atherosclerosis of CABG w/o angina pectorisComments:Your ECG is stable. Hypertension, smoking, diabetes, inactivity, obeisity and cholesterol all promote heart plaque formation.Z72.0 Tobacco useComments:I strongly recommend completely stopping cigarettes.E78.01 Familial hypercholesterolemiaNew Medication:Rosuvastatin Calcium 5 mgFollow up:OV 1 month PERMIT TECHNICIAN (to follow up on cholesterol medication and labs).
--- NOTE | 2018-05-20 17:17 | ED ---
HPI Chest Pain - HPI Summary HPI Summary: A 62 y/o M referred from [facility]/Dr. Hunt's MOLD MOVER with pert PMHx: SD, CABG, presents to ED with c/o mid-sternal CP onset this AM upon waking. CP is described as heavy and tight and has spread across his chest and radiating to LUE shoulder. Pt relates his chest pain and SOB are worse with exertion. Associated sx: SOB; diaphoresis, LUE tingling posteriorly; dizziness onset last night upon standing. He took his BP which was a little higher than usual, but his HR was 103 bpm, which is very high for him. Pt takes a daily aspirin, and took it this AM. 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 Pt does not typically have angina or take NTG. Pt has hx afib, is not on anticoagulation. He is on dual anitplatelet therapy with Brilinta and ASA. Pt presented to the ED by private car after being advised to come to the ED by ambulance by Dr. Hunt's MOLD MOVER. He is accompanied by his ex who is his health care proxy. Dr. Hunt's MOLD MOVER noted that pt has changing ST-T wave segments from February to April to today and sent faxed EKG's to the ED. Per pt report from [facility]: Pt has PMHx ICM LVEF 30%, CAD with remote bypass and subsequent thrombectomy and ANA ROSA to LAD in 2014 due to acute anterior SD requiring IABP. Pt reports hx afib. Last echo in 2016: LVEF 30% with 1-2+ MR. LHC in 08/2015 due to anterior SD; BRAYDON to distal RCA was patent, known occlusion of vein grat to ramus and diag. Thrombus removed from LAD via aspiration thrombectomy with subsequent stenting x2 to LAD. Vital signs while in room: HR 74 bpm, BP 130/80. Home Medications Medication Instructions Recorded Confirmed Type ALPRAZolam TAB* [Xanax TAB*] 1 mg PO TID PRN 05/20/18 05/20/18 History Aspirin EC TAB* [Ecotrin EC Low 81 mg PO DAILY 05/20/18 05/20/18 History Dose 81 MG*] DULoxetine DR CAP* [Cymbalta CAP*] 15 mg PO DAILY 05/20/18 05/20/18 History Furosemide TAB* [Lasix TAB*] 20 mg PO MOWEFR 05/20/18 05/20/18 History Lisinopril TAB* [Prinivil TAB*] 40 mg PO DAILY 05/20/18 05/20/18 History Metoprolol Succinate XL TAB* 50 mg PO DAILY 05/20/18 05/20/18 History [Toprol XL TAB*] Metoprolol Succinate XL TAB* 100 mg PO DAILY 05/20/18 05/20/18 History [Toprol XL TAB*] Psyllium DAVIDSON* [Metamucil DAVIDSON*] 2 pkt PO TID PRN 05/20/18 05/20/18 History QUEtiapine TAB* [Seroquel 300 MG 300 mg PO QPM 05/20/18 05/20/18 History TAB*] Ranitidine TAB (NF) [Zantac TAB 300 mg PO QAM 05/20/18 05/20/18 History (NF)] Rosuvastatin (NF) [Crestor (NF)] 5 mg PO MOWEFR 05/20/18 05/20/18 History Ticagrelor (NF) [Brilinta 60 MG 60 mg PO BID 05/20/18 05/20/18 History TAB] lamoTRIgine TAB(*) [LaMICtal 100 mg PO QPM 05/20/18 05/20/18 History TAB(*)] - History of Current Complaint Chief Complaint: EDChestPainROMI Time Seen by Provider: 05/20/18 17:16 Hx Obtained From: Patient, Family/Slitter Scorer Cut Off Operator - ex- who is his health care proxy, Medical Records Onset/Duration: Started Hours Ago, Atraumatic, Still Present Time of Onset: 08:00 - upon waking Timing: Constant Initial Severity: Moderate Current Severity: Mild Pain Intensity: 2 Pain Scale Used: 0-10 Numeric Chest Pain Location: Mid Sternal - but expanded to across chest Chest Pain Radiates: Yes Chest Pain Radiates To:: Shoulder - left, Arm - bilateral Character: Heaviness, Pressure/Squeezing Aggravating Factor(s): Nothing Alleviating Factor(s): Nothing Associated Signs and Symptoms: Positive: Chest Pain, Tingling - LUE posterior, Dizziness, Shortness of Breath, Diaphoresis, Palpitations - Additional Pertinent History Primary Care Physician: DEMETRIO - Allergy/Home Medications Allergies/Adverse Reactions: Allergies Allergy/AdvReac Type Severity Reaction Status Date / Time No Known Allergies Allergy Verified 05/20/18 17:54 Home Medications: Home Medications ALPRAZolam TAB* [Xanax TAB*] 1 mg PO TID PRN 05/20/18 [History Confirmed ] Aspirin EC TAB* [Ecotrin EC Low Dose 81 MG*] 81 mg PO DAILY 05/20/18 [History Confirmed 05/20/18] DULoxetine DR CAP* [Cymbalta CAP*] 15 mg PO DAILY 05/20/18 [History Confirmed ] Furosemide TAB* [Lasix TAB*] 20 mg PO MOWEFR 05/20/18 [History Confirmed ] Lisinopril TAB* [Prinivil TAB*] 40 mg PO DAILY 05/20/18 [History Confirmed 05/20] Metoprolol Succinate XL TAB* [Toprol XL TAB*] 50 mg PO DAILY 05/20/18 [History Confirmed 05/20/18] Metoprolol Succinate XL TAB* [Toprol XL TAB*] 100 mg PO DAILY 05/20/18 [History Confirmed 05/20/18] Psyllium DAVIDSON* [Metamucil DAVIDSON*] 2 pkt PO TID PRN 05/20/18 [History Confirmed ] QUEtiapine TAB* [Seroquel 300 MG TAB*] 150 mg PO QPM 05/20/18 [History Confirmed 05/20/18] Ranitidine TAB (NF) [Zantac TAB (NF)] 300 mg PO QAM 05/20/18 [History Confirmed 05/20/18] Rosuvastatin (NF) [Crestor (NF)] 5 mg PO MOWEFR 05/20/18 [History Confirmed ] Ticagrelor (NF) [Brilinta 60 MG TAB] 60 mg PO BID 05/20/18 [History Confirmed ] lamoTRIgine TAB(*) [LaMICtal TAB(*)] 50 mg PO QPM 05/20/18 [History Confirmed ] PMH/Surg Hx/FS Hx/Imm Hx Previously Healthy: No Endocrine/Hematology History: Denies: Hx Diabetes, Hx Thyroid Disease, Hx Anemia Cardiovascular History: Reports: Hx Angina, Hx Angioplasty, Hx Atrial Fibrillation, Hx Cardiac Arrest, Hx Congestive Heart Failure, Hx Hypertension, Hx Myocardial Infarction, Other Cardiovascular Problems/Disorders - thrombectomy , required IABP Denies: Hx Aneurysm, Hx Auto Implanted Cardiovert Defib, Hx Hypercholesterolemia, Hx Peripheral Vascular Disease Respiratory History: Denies: Hx Asthma, Hx Chronic Obstructive Pulmonary Disease (COPD) GI History: Denies: Hx Ulcer History: Reports: Hx Benign Prostatic Hyperplasia Musculoskeletal History: Denies: Hx Arthritis, Hx Osteoporosis Sensory History: Reports: Hx Contacts or Glasses Denies: Hx Cataracts, Hx Glaucoma, Hx Hearing Aid Opthamlomology History: Reports: Hx Contacts or Glasses Denies: Hx Cataracts, Hx Glaucoma Neurological History: Reports: Hx Headaches - daily headaches Denies: Hx Seizures, Hx Transient Ischemic Attacks (TIA) Psychiatric History: Reports: Hx Anxiety, Hx Depression - Surgical History Surgery Procedure, Year, and Place: hernia x3. Fistula. Heart Bypass 2005 - Immunization History Date of Tetanus Vaccine: UTD Date of Influenza Vaccine: NO Infectious Disease History: No Infectious Disease History: Denies: Hx Clostridium Difficile, Hx Hepatitis, Hx Human Immunodeficiency Virus (HIV), Hx of Known/Suspected MRSA, Hx Shingles, Hx Tuberculosis, Hx Known/ Suspected VRE, Hx Known/Suspected VRSA, History Other Infectious Disease, Traveled Outside the [place] in Last 30 Days - Family History Known Family History: Positive: Cardiac Disease - mother and father, Hypertension - father, Other - CVA in father - Social History Occupation: Disabled Lives: Alone Alcohol Use: None Hx Substance Use: No Substance Use Type: Reports: None Hx Tobacco Use: Yes Smoking Status (MU): Heavy Every Day Tobacco Smoker Type: Cigarettes Amount Used/How Often: 1ppd Review of Systems Positive: Skin Diaphoresis Positive: Chest Pain Positive: Shortness Of Breath Gastrointestinal: Negative Musculoskeletal: Other - pos: LUE tingling posteriorly Positive: Bruising - left ant chest Neurological: Other - pos: dizziness Psychological: Normal All Other Systems Reviewed And Are Negative: Yes Physical Exam - Summary Physical Exam Summary: Appearance: ill-appearing, minimal pain distress, well-nourished. Smells of cigarette smoke. Pt is texting on his phone. Skin: Warm, color reflects adequate perfusion, dry. 2cm green/yellow ecchymosis on L anterior chest. Head: Normal Head/Face inspection, atraumatic Eyes: Conjunctiva clear ENT: Normal inspection Neck: Supple, no nodes, no JVD Respiratory: Lungs clear, normal breath sounds, no respiratory distress Cardio: RRR, No murmur, pulses normal, brisk capillary refill Abdomen: Soft, nontender Bowel sounds: Present Musculoskeletal: Strength Intact/ROM intact, no calf tenderness, no edema. Psychological: Normal Neuro: Alert, muscle tone normal, no focal deficit Triage Information Reviewed: Yes Vital Signs On Initial Exam: Initial Vitals Temp Pulse Resp BP Pulse Ox 97.2 F 74 18 130/80 97 05/20/18 16:31 05/20/18 16:31 05/20/18 16:31 05/20/18 16:31 05/20/18 16:31 Vital Signs Reviewed: Yes Diagnostics - Vital Signs Vital Signs Temp Pulse Resp BP Pulse Ox 05/20/18 16:31 97.2 F 74 18 130/80 97 - Laboratory Result Diagrams: 05/20/18 17:14 05/20/18 17:14 Lab Statement: Any lab studies that have been ordered have been reviewed, and results considered in the medical decision making process. - Radiology CXR Xray Interpretation: No Acute Changes - IMPRESSION: No active cardiopulmonary dz is noted. Postoperative changes are noted. ED provider has reviewed this report. Radiology Interpretation Completed By: Radiologist - EKG 1636 Cardiac Rate: NL - 68bpm EKG Rhythm: Sinus Rhythm ST Segment: Non-Specific - minimal ST elevation - VIII Ectopy: None EKG Interpretation: non-specific prolonged IVCD. nml AV. nml QTc. nml axis. EKG Comparison: Other - nonspecific ST-T waves changes compared with EKGs on an 02/08/18. Re-Evaluation - Re-Evaluation 1 Re-Evaluation Time: 17:51 Comment: Discussed MOLST form with pt and his health care proxy (ex-). Pt is DNR, except if he needs a heart catherization, he wants to rescind the DNR during the procedure. 2 Re-Evaluation Time: 18:23 Chest Pain Course/Dx - Course Course Of Treatment: Pt is a 62 y/o M sent from [facility]/ Dr. Hunt's MOLD MOVER presenting with mid-sternal, spreading CP radiating to L shoulder. Per pt report from [facility]: Pt has PMHx ICM LVEF 30%, CAD with remote bypass and subsequent thrombectomy and ANA ROSA to LAD in 2014 due to acute anterior SD requiring IABP. Pt reports hx afib. Last echo in 2016: LVEF 30% with 1-2+ MR. LHC in 08/2015 due to anterior SD; BRAYDON to distal RCA was patent, known occlusion of vein grat to ramus and diag. Thrombus removed from LAD via aspiration thrombectomy with subsequent stenting x2 to LAD. All EKG's were reviewed and read by Dr. Lee, who discussed EKG's with Dr. Ward who reviewed all available EKG's remotely. Discussed MOLST form with pt and his health care proxy (ex-). Pt is DNR, except if he needs a heart catherization , he wants to rescind the DNR during the procedure. Consulted with Dr. Funes, cardio, and the EKG is not a STEMI. He recommends cycling enzymes, heparin. Dr. Arcos, hospitalist, will admit pt. Allergies noted. Pt medications reviewed this visit. High blood pressure noted. - Chest Pain Differential Diagnosis/HQI/PQRI: Acute SD, ACS, Angina, CHF, Pulmonary Edema, Other: - dysrhythmia - Diagnoses Provider Diagnoses: Tobacco abuse disorder, Poor high blood pressure control, Unstable angina - Provider Notifications Discussed Care Of Patient With: Jen Urrutia - hospitalist Time Discussed With Above Provider: 17:27 Instructed by Provider To: Other - Reviewing EKG. Recommends consulting cardiology. Discharge - Sign-Out/Discharge Documenting (check all that apply): Patient Departure - ADM - Discharge Plan Condition: Stable Disposition: ADMITTED TO [facility] - Billing Disposition and Condition Condition: STABLE Disposition: Admitted to [facility] - Attestation Statements Document Initiated by Ifeanyiibe: Yes Documenting Scribe: Pasquale Del Cid Provider For Whom Koby is Documenting (Include Credential): MD Ifeanyi Edouardibe Attestation: Pasquale Barajas, scribed for Dr. Bernice Lee MD on 05/21/18 at 0231. Scribe Documentation Reviewed: Yes Provider Attestation: The documentation as recorded by the scribe, SooYoung VanDeMark accurately reflects the service I personally performed and the decisions made by me, Dr. Bernice Lee MD Consult Consult: AT 173, CONSULT WITH DR. DIXON, CARDIO: Recommends calling Dr. Funes cardio AT 173, CONSULT WITH DR. FUNES CARDIO: Will review EKG and call back. Suggests heparin if no contra indications. AT 1746, CONSULT WITH DR. FUNES CARDIO: Recommends cycling enzymes, heparin, and admitting pt. EKG is not a STEMI. AT 1805, CONSULT WITH DR. ARCOS, HOSPITALIST: Will admit pt. AT 1822, CONSULT WITH DR. FUNES CARDIO: Updating him on pt's DNR request unless undergoing heart cath in which case he would rescind DNR only during the procedure.
[2018-05-20 17:20] LABS: ABS Basophils 0.1 10^3/ul (0-0.2); ABS Eosinophils 0.3 10^3/ul (0-0.6); ABS Lymphocytes 2.5 10^3/ul (1.0-4.8); ABS Monocytes 0.8 10^3/ul (0-0.8); ABS Neutrophils 6.6 10^3/ul (1.5-7.7); ABS Nucleated RBC 0 10^3/ul; Eosinophil % 2.5 % (0-6); Hematocrit 50 % (42-52); Hemoglobin 17.2 g/dl (14.0-18.0); Lymphocyte % 24.3 % (25-47); Mean Corpuscular HGB Conc 34 g/dl (31-36); Mean Corpuscular Hemoglobin 33 pg (27-31); Mean Corpuscular Volume 97 fL (80-94); Mean Platelet Volume 8.7 um3 (7.4-10.4); Nucleated Red Blood Cells % 0.1; Platelet Count 259 10^3/ul (150-450); Red Blood Count 5.15 10^6/ul (4.00-5.40); Red Cell Distribution Width 14 % (10.5-15); White Blood Count 10.3 10^3/ul (3.5-10.8)
--- NOTE | 2018-05-20 17:22 | RAD ---
Indication: Chest pain. Single frontal view of the chest performed at 1712 hours was reviewed. Comparison is made with previous exam dated July 03, 2017. No mediastinal shift is noted. Heart is of normal size and configuration. Lung agrawal appear clear. Patient is status post transsternal thoracotomy. Overall no changes noted since previous exam. IMPRESSION: NO ACTIVE CARDIOPULMONARY DISEASE IS NOTED. POSTOPERATIVE CHANGES ARE NOTED.
[2018-05-20 17:26] LABS: INR 0.94 (0.77-1.02)
[2018-05-20 17:39] LABS: EGFR Non-African American 57.7 (>60)
[2018-05-20] MEDS ORDERED: Heparin for STEMI(*) 5,000 UNITS/ML 1 ML VIAL IV ONE ×2 (18:13→18:54)
[2018-05-20] MEDS ORDERED: Heparin DRIP 25,000 UNITS(*) 25,000 UNITS/500 ML BAG IV SCH (18:30)
[2018-05-20] MEDS ORDERED: ALPRAZolam TAB* 0.5 MG PO PRN (18:45)
[2018-05-20 19:04] LABS: Urine Appearance Cloudy; Urine Blood 1+ (Negative); Urine Color Yellow; Urine Ketones Negative (Negative); Urine Protein Negative (Negative); Urine Red Blood Cell Trace(0-2/hpf) (Absent); Urine Urobilinogen Negative (Negative); Urine White Blood Cell Absent (Absent)
[2018-05-20] MEDS: QUEtiapine TAB* 100 MG PO SCH ×2 (21:31→23:19)
[2018-05-20] MEDS: CMCS:Ticagrelor (NF) 60 MG TAB PO SCH (21:31)
--- NOTE | 2018-05-20 22:16 | HP ---
CC: Dr. Hatch * HISTORY AND PHYSICAL: DATE OF ADMISSION: 05/20/18 PROVIDER: Brady Lynch NP ATTENDING PHYSICIAN: Dr. Garcia * (report dictated by Brady Lynch NP). PRIMARY CARE PROVIDER: Dr. Hatch. ANIMAL IMPERSONATOR: Dr. Hunt. CHIEF COMPLAINT: Chest pain sent from cardiology office for concern for unstable angina. HISTORY OF PRESENT ILLNESS: Mr. Culver is a 62-year-old male with a past medical history of ischemic cardio-myopathy with an LVEF of 30%, history of coronary artery disease with remote bypass and subsequent thrombectomy and stent to LAD in 2014 secondary to an acute anterior [place] requiring IABP. He has 2 stents to the LAD. As well has a history of atrial fibrillation, but is not on anticoagulation. The patient presented to the cardiology office today with complaints of substernal chest pain starting this morning around 8 a.m. in which he reports to be midsternal radiating to his right and left chest wall reporting it to be a 2/10. He reported accompanied shortness of breath with exertion and at rest and diaphoresis. His chest pain then increased to a 3/10 and he called the cardiology office and came in for evaluation. He reports he had an episode like this a few months ago. Other than that, he denies having angina regularly. In the cardiology office, he had an EKG, which revealed normal sinus rhythm with known inferior Q waves, lateral T- waves which were absent on 05/04/18, but were noted to be present in February 2018. It was recommended that the patient go to the emergency department for further evaluation as there was a concern for unstable angina. In the emergency department, the patient had an EKG, which was similar to the one in the office. His initial troponin is 0.03. An inch of nitro paste was initiated on the patient's left upper chest wall. The patient reports resolution of his chest pain and shortness of breath at this time. On my evaluation, the patient was considering leaving against medical advice due to he is questioning whether he rescinds his DNR post cardiac catheterization if he were to require a cardiac cath. At this time, the patient has agreed to stay and wishes to remain a DNR at this time. Currently, the patient denies chest pain, shortness of breath. Also please noted the patient initially complained of dizziness and palpitations at home and there was a concern for possible arrhythmias due to his severe LV dysfunction. PAST MEDICAL HISTORY: 1. Coronary artery disease, history of remote bypass with known graft occlusion in the ramus and diagonal with patent BRAYDON to distal RCA in 2014, LHO with PCI to LAD at that time. The patient has 2 stents to the LAD. 2. Ischemic cardiomyopathy with an LVEF of less than 30%. 3. Obesity. 4. Hypertension. 5. Hyperlipidemia. 6. Bipolar disorder. 7. PTSD. 8. Systolic heart failure. PAST SURGICAL HISTORY: 1. Bypass surgery. 2. Hernia repair. HOME MEDICATIONS: 1. Brilinta 60 mg p.o. b.i.d. 2. Crestor 5 mg p.o. Thursday, Thursday, Thursday. 3. Metamucil 2-pack p.o. t.i.d. p.r.n. 4. Cymbalta 15 mg p.o. daily. 5. Seroquel 150 mg p.o. q.p.m. 6. Metoprolol succinate XL 150 mg p.o. daily. 7. Lisinopril p.o. daily. 8. Lamictal 50 mg p.o. q.p.m. 9. Xanax 1 mg p.o. t.i.d. p.r.n. 10. Lasix 20 mg p.o. Thursday, Thursday, Thursday. 11. Zantac 300 mg p.o. q.a.m. 12. Aspirin 81 mg daily. ALLERGIES: No known allergies. FAMILY HISTORY: Positive for prostate cancer, coronary artery disease, and diabetes. SOCIAL HISTORY: One and half packs of cigarettes for 40 plus years. Denies alcohol use. He lives alone. His ex- is his healthcare proxy. She lives next door to him. He is a DNR. The MOLST is on the chart. REVIEW OF SYSTEMS: A 14-point review of systems was performed. All the pertinent positives and negatives are mentioned in the history of present illness. Otherwise are negative. PHYSICAL EXAMINATION GENERAL APPEARANCE: A chronically ill-appearing 62-year-old male, sitting up on the emergency department stretcher, alert and oriented x3, in no acute distress. VITAL SIGNS: Temperature 97.2, heart rate 80, respirations 21, O2 sat 97% on room air, blood pressure 126/89. HEENT: Head is normocephalic and atraumatic. Pupils are equal and reactive to light. Oropharynx is clear. Moist mucous membranes. NECK: Supple. LUNGS: Clear to auscultation bilaterally with good aeration throughout. CARDIAC: S1, S2. Regular rate and rhythm. No JVD noted. No lower extremity edema noted. 2+ DP pulses bilaterally. ABDOMEN: Soft, nontender, nondistended. Normal bowel sounds throughout. Obese. EXTREMITIES: No clubbing, cyanosis, or edema. NEURO: Cranial nerves II through XII are grossly intact. Moves all extremities equally. Sensation to lower extremities intact to light touch. DIAGNOSTIC STUDIES/LAB DATA: WBC is 10.3, HGB is 17.5, HCT 50, MCV 97, MCH 33 , MCHC 34, RDW 14, platelet count 259. INR 0.94, PTT 31.5. Sodium 134, potassium 4.5, chloride 105, carbon dioxide 23, anion gap 9, BUN 21, creatinine 1.27, glucose 108, lactic acid 1.6, calcium 9.5, magnesium 2.0. Total bilirubin 0.60, AST 22, ALT 25, alkaline phosphatase 72. Total creatine kinase 91, CK-MB 5.4, troponin 0.03, BNP 47. Total protein 7.5. TSH 1.06. Urinalysis : 1+ blood, hyaline cast present, otherwise unremarkable. Chest x-ray, impression: "No active cardiopulmonary disease is noted. Postoperative changes noted." EKG: Sinus rhythm at a rate of 68 with known inferior Q waves with T-wave inversion noted compared to prior EKG from June 2017. We do not have the EKG from supervisor parking lot's office present. ASSESSMENT AND PLAN: Mr. Culver is a 62-year-old male with a past medical history of ischemic cardiomyopathy with an LVEF of 30%, coronary artery disease with remote bypass and 2 stents to the LAD, history of current tobacco abuse, hypertension, bipolar disorder, systolic heart failure, who presented to the cardiology office today with report of chest pain, diaphoresis, dizziness and palpitations, who was sent to the emergency department for concern for unstable angina. 1. Unstable angina. The patient currently is stable without any further chest pain. There was a concern for unstable angina. Plan will be to admit the patient to the ICU on a heparin drip. Plan to trend troponin, CK-MB and total creatine kinase q.6 hours per recommendation of supervisor parking lot. I did speak with Dr. Ward, who has reviewed the patient's EKG, who recommends monitoring only at this time. The patient's initial troponin is flat at 0.03. It is possible this is not cardiac in origin and there is another reason for his chest discomfort. It is concerning he had dizziness, palpitations and diaphoresis and there is concern for unstable angina and/or possible arrhythmias. The patient's potassium and magnesium are within normal limits. We will continue aspirin, Brilinta, lisinopril, metoprolol, and nitro paste at this time. We will place a Cardiology consult for tomorrow. Please see supervisor parking lot's office note by Jimena Moran NP, for full details of his office visit today. It is noted in her note that concern for dizziness with associated palpitations, the patient has a historical history of atrial fibrillation as well. He is at high risk for arrhythmia. 2. Hypertension, well controlled. Continue home medications. 3. Bipolar. Continue Seroquel, Lamictal, Celexa. 4. Anxiety. Continue Xanax p.r.n. 5. Tobacco abuse. Smoking cessation. Nicotine supplementation. 6. DVT prophylaxis: Heparin drip. 7. Code status: DNR. JOSE is on the chart. 8. Healthcare proxy: The patient lists his ex- as his healthcare proxy as well as his brother, Bk Culver, . TIME SPENT: Approximately 75 minutes were spent on this admission. BRADY LYNCH NP [id number]/CPS #: [id number] MARTÍN
[2018-05-20] MEDS ORDERED: Heparin VIAL(*) 5000 UNITS/ML VIAL (FIVE THOUSAND) IV SCH (23:00)
[2018-05-21] MEDS: CMCS:Ticagrelor (NF) 60 MG TAB PO SCH (08:13)
--- NOTE | 2018-05-21 08:28 | PN ---
Subjective Date of Service: 05/21/18 Interval History: No more chest pressure. No new c/o. No cough, SOB, palpitations. Objective Active Medications: Alprazolam (Xanax Tab*) 1 mg PO TID PRN PRN Reason: ANXIETY Last Admin: 05/20/18 21:31 Dose: 1 mg Aspirin (Aspirin Ec Tab*) 81 mg PO DAILY [facility] Last Admin: 05/21/18 08:14 Dose: 81 mg Duloxetine HCl (Cymbalta Cap*) 15 mg PO DAILY [facility] Heparin Sodium (Porcine) (Heparin Vial(*)) 0 units IV .PER PROTOCOL [facility] Heparin Sodium/Dextrose (Heparin Drip 25,000 Units(*)) 25,000 units in 500 mls @ 0 mls/hr IV PER RATE [facility]; Protocol Last Admin: 05/20/18 19:25 Dose: 19 mls/hr Lamotrigine (Lamictal Tab(*)) 50 mg PO QPM [facility] Lisinopril (Prinivil Tab*) 40 mg PO DAILY [facility] Last Admin: 05/21/18 08:14 Dose: 40 mg Metoprolol Succinate (Toprol Xl Tab*) 150 mg PO DAILY [facility] Last Admin: 05/21/18 08:13 Dose: 150 mg Quetiapine Fumarate (Seroquel Tab*) 150 mg PO QPM [facility] Last Admin: 05/20/18 23:19 Dose: 150 mg Ticagrelor (Brilinta (Nf)) 60 mg PO BID [facility] Last Admin: 05/21/18 08:13 Dose: 60 mg Vital Signs - 8 hr 05/21/18 05/21/18 05/21/18 01:00 02:00 03:00 Temperature Pulse Rate 67 70 68 Respiratory 18 18 20 Rate Blood Pressure 103/66 112/71 98/64 (mmHg) O2 Sat by Pulse 97 100 100 Oximetry 05/21/18 05/21/18 05/21/18 03:30 04:00 05:00 Temperature 96.5 F Pulse Rate 66 69 Respiratory 18 13 17 Rate Blood Pressure 115/63 114/73 (mmHg) O2 Sat by Pulse 100 100 Oximetry 05/21/18 06:00 Temperature Pulse Rate Respiratory 18 Rate Blood Pressure (mmHg) O2 Sat by Pulse Oximetry Oxygen Devices in Use Now: None Appearance: Alert, partly up in ICU bed. In good spirits. Looks comfortable. Eyes: No Scleral Icterus Respiratory: Symmetrical Chest Expansion and Respiratory Effort, Clear to Auscultation, Clear to Percussion Cardiovascular: NL Sounds; No Murmurs; No JVD, RRR, No Edema, - - No chest wall tenderness. Extremities: No Edema, No Clubbing, Cyanosis, - - No calf tenderness. Skin: No Rash or Ulcers, No Nodules or Sclerosis, - Neurological: Alert and Oriented x 3, NL Sensation Result Diagrams: 05/20/18 17:14 05/20/18 17:14 Microbiology and Other Data: Microbiology 05/20/18 20:09 Nasal Screen MRSA (PCR) - Final Nasal Mrsa Not Detected Assess/Plan/Problems-Billing Assessment: - Patient Problems (1) CAD (coronary artery disease) Current Visit: Yes Status: Acute Code(s): I25.10 - ATHSCL HEART DISEASE OF [place] CORONARY ARTERY W/O ANG PCTRS SNOMED Code(s): 45840720 Comment: With ischemic cardiomyopathy. Second episode of chest pressure, first in mid-April 2018. Some dizziness, HR 102 at home. All 3 troponins wnl. ? cardiac vs non-cardiac chest pressure. ? arrhythmia. Note AICD in place. Echo and chemical stress test ordered 05/21 Continue DAPT, metoprolol, lisinopril, statin. (2) Bipolar 1 disorder Current Visit: Yes Status: Acute Code(s): F31.9 - BIPOLAR DISORDER, UNSPECIFIED SNOMED Code(s): 813403948 Comment: Continue duloxetine, lamotrigine, quetiapine, PRN alprazolam.
[2018-05-21] MEDS ORDERED: Metoprolol Succinate XL TAB* 100 MG PO SCH (09:00)
[2018-05-21] MEDS ORDERED: CMC: Rosuvastatin (NF) 5 MG TAB PO SCH (09:00)
[2018-05-21] MEDS ORDERED: Metoprolol Succinate XL TAB* 50 MG PO SCH (09:00)
[2018-05-21] MEDS ORDERED: Aspirin EC TAB* 81 MG TAB.EC PO SCH (09:00)
[2018-05-21] MEDS ORDERED: Lisinopril TAB* 10 MG PO SCH (09:00)
[2018-05-21] MEDS ORDERED: DULoxetine DR CAP* 20 MG CAP.DR PO SCH (09:00)
[2018-05-21] MEDS ORDERED: Perflutren Lipid Microsphere* 3 ML VIAL ONE (09:41)
[2018-05-21] MEDS ORDERED: Regadenoson* 0.4 MG/5 ML SYRINGE ONE (11:21)
[2018-05-21] MEDS ORDERED: Aminophylline IV* 25 MG/ML 10 ML VIAL ONE (11:21)
--- NOTE | 2018-05-21 11:48 | ECHO ---
Patient: CARLOS EDUARDO JACK [facility] Rec#: [id number] : 1955 Date: 05/21/2018 Age: 62y Height: 173 cm / 68.1 in Weight: 97.5 kg / 214.9 lbs Sex: M BSA: 2.11 Room#: ICU-5 Admit Date#: 05/20/2018 Type: Inpatient Referring: Robby Sawant MD Reading: Sara Hall MD [employer] Repairer: Maria Marshall RDCS CC: Tito Hatch MD Transthoracic Echocardiogram Indication: Cardiomyopathy, shortness of breath BP: 117/73 HR: 66 Rhythm: NSR with PVCs Findings History: MD, s/p CABG and PCI, obesity, HTN, HLD, ischemic cardiomyopathy,and systolic heart failure. Technical Comments: The study quality is fair. The study is technically limited due to poor apical windows. Completed at 1030. Left Ventricle: The left ventricular chamber size is normal. There is no left ventricular hypertrophy. There is a focal wall motion abnormality present. There is moderately decreased left ventricular systolic function. The estimated ejection fraction is 30-35%. Severe hypokinesis to akinesis of the apex, anterior/anterior septal and inferior recinos Post surgical hypokinesis of the interventricular septum is observed consistent with coronary artery bypass. There is no consistent Doppler evidence of clinically significant diastolic dysfunction. Left Atrium: The left atrium is mildly dilated. Right Ventricle: The right ventricle is not well visualized. The right ventricular global systolic function is normal. Right Atrium: The right atrium is mildly dilated. Aortic Valve: The aortic valve is trileaflet. The aortic valve leaflets are mildly thickened. There is mild to moderate aortic regurgitation. There is no evidence of aortic stenosis. The measured aortic regurgitation pressure half-time is 349 msec. Mitral Valve: The mitral valve leaflets are mildly thickened. There is mild to moderate mitral regurgitation. There is no evidence of mitral stenosis. Tricuspid Valve: The tricuspid valve leaflets are normal. There is mild tricuspid regurgitation. The right ventricular systolic pressure is estimated at 33 mmHg. There is evidence that pulmonary hypertension may be underestimated. There is no tricuspid stenosis. Pulmonic Valve: The pulmonic valve appears normal. There is mild pulmonic regurgitation. There is no pulmonic stenosis. Pericardium: There is no significant pericardial effusion. A pericardial fat pad is visualized. Aorta: There is no dilatation of the ascending aorta. There is no dilatation of the aortic arch. The aortic root is normal in size. Pulmonary Artery: The main pulmonary artery appears normal. Venous: The inferior vena cava is dilated. There is a greater than 50% respiratory change in the inferior vena cava dimension. Contrast: Definity was used to optimize study. 5 mL of diluted Definity were utilized. Intravenous contrast was used to enhance endocardial border definition. Summary: There are no significant changes when compared to the previous study done on 07/16/2017 no overt sig changes Conclusions The left ventricular chamber size is normal. The estimated ejection fraction is 30-35%. Severe hypokinesis to akinesis of the apex, anterior/anterior septal and inferior recinos Post surgical hypokinesis of the interventricular septum is observed consistent with coronary artery bypass. There is no consistent Doppler evidence of clinically significant diastolic dysfunction. The left atrium is mildly dilated. The right atrium is mildly dilated. There is mild to moderate aortic regurgitation. There is mild to moderate mitral regurgitation. There is mild tricuspid regurgitation. There is mild pulmonic regurgitation. Measurements Name Value Normal Range RVIDd (AP) 2D 3 cm (0.9 - 2.6) RAd ISD 4CH 5 cm (3.4 - 4.9) RA (A4C)W 4.4 cm (2.9 - 4.6) IVSd (2D) 0.8 cm (0.6 - 1) LVPWd (2D) 0.9 cm (0.6 - 1) LVIDd (2D) 5.3 cm (3.6 - 5.4) LVIDs (2D) 4.3 cm - LV FS (2D) 18 % (25 - 45) Aortic Annulus 2 cm (1.4 - 2.6) Ao root diameter (2D) 2.9 cm (2.1 - 3.5) Ascending Ao 3.3 cm (2.1 - 3.4) Aortic arch 2.3 cm (1.8 - 3.4) LA dimension (AP) 2D 5 cm (2.3 - 3.8) LAd ISD 4CH 5.2 cm (2.9 - 5.3) LA ISD 4CH W 4 cm (2.5 - 4.5) Name Value Normal Range LA ESV BP (A/L) index 31 ml/m2 - Name Value Normal Range MV E-wave Vmax 0.7 m/sec - MV deceleration time 229 msec - MV A-wave Vmax 0.6 m/sec - MV E:A ratio 1.3 ratio - LV septal e' Vmax 0.08 m/sec - LV lateral e' Vmax 0.13 m/sec - LV E:e' septal ratio 8.75 ratio - LV E:e' lateral ratio 5.38 ratio - Name Value Normal Range AV Vmax 1.3 m/sec - AV VTI 22.6 cm - AV peak gradient 6 mmHg - AV mean gradient 3 mmHg - LVOT Vmax 0.8 m/sec - LVOT VTI 16.7 cm - LVOT peak gradient 3 mmHg - LVOT mean gradient 1 mmHg - AR PHT 349 msec - ANNE Vmax 0.8 m/sec - Name Value Normal Range TR Vmax 2.5 m/sec - TR peak gradient 25 mmHg - RAP 8 mmHg - RVSP 33 mmHg - IVC diameter 2.2 cm - Name Value Normal Range PV Vmax 0.9 m/sec - PV peak gradient 3 mmHg -
--- NOTE | 2018-05-21 13:26 | RAD ---
Edited for charges. Indication: Chest pressure. Myocardial perfusion scan was performed utilizing 1 day protocol. Rest myocardial perfusion was performed intravenous injection of 10.9 mCi of technetium 99m tetrofosmin. Pharmacological stress was applied and 25.8 mCi of technetium 99 and tetrofosmin was injected. There is a large defect in the left ventricle involving the anterior wall extending into the septum as well as in the inferior wall. This appears to be predominantly a fixed defect. The ejection fraction at stress is 27%. Evaluation of wall motion demonstrates global hypokinesis with paradoxical motion at the apex and anterior wall. IMPRESSION: Large fixed defect involving the anterior wall, apex and inferior wall. Cardiomegaly is noted. Ejection fraction of 27%. Wall motion demonstrates paradoxical motion of the anterior wall and apex. ASSESSMENT: High risk Based on imaging criteria from ACC/AHA 2002 Guideline Update for the Management of Patients With Chronic Stable Angina Table 23. Noninvasive Risk Stratification. Reference. MTDD
[2018-05-21 15:19] VITALS: BP 138/81
--- NOTE | 2018-05-21 16:51 | PN ---
Progress Note - Progress Note Date of Service: 05/21/18 Note: Time spent on discharge 45 minutes, including exam of patient, discussionwith patient nurse, CM, review of EMR and preparation of discharge documents.
[2018-05-21] MEDS ORDERED: QUEtiapine TAB* 300 MG PO SCH ×2 (18:00)
[2018-05-21] MEDS ORDERED: lamoTRIgine TAB(*) 100 MG PO SCH ×2 (18:00→21:00)
== END 2018-05-21 15:00 | disposition home or self-care (01) | DRG 303 ==
LOC: ED 16:29 → ICU 18:35
PROVIDERS: ADMIT Internal Medicine; ATTEND Internal Medicine
DX: I25.110 Atherosclerotic heart disease of native coronary artery with unstable angina pectoris (principal); I50.22 Chronic systolic (congestive) heart failure; I25.5 Ischemic cardiomyopathy; I48.91 Unspecified atrial fibrillation; Z66 Do not resuscitate; E66.9 Obesity, unspecified; E78.5 Hyperlipidemia, unspecified; F31.9 Bipolar disorder, unspecified; F43.10 Post-traumatic stress disorder, unspecified; F17.210 Nicotine dependence, cigarettes, uncomplicated; F41.9 Anxiety disorder, unspecified; Z95.1 Presence of aortocoronary bypass graft; Z95.5 Presence of coronary angioplasty implant and graft; I25.2 Old myocardial infarction; Z68.32 Body mass index [BMI] 32.0-32.9, adult; Z82.49 Family history of ischemic heart disease and other diseases of the circulatory system; Z83.3 Family history of diabetes mellitus; Z80.42 Family history of malignant neoplasm of prostate; Z82.3 Family history of stroke
CPT/HCPCS: 36415; 71045; 78452; 80053; 81003; 81015; 82550; 82553; 83605; 83735; 83880; 84443; 84484; 85025; 85610; 85730; 87641; 93005; 93017; 99285; A9270-GY; A9502; J0280; J1644; J2785

== ENCOUNTER 2019-01-29 08:50 | Emergency (ER) | payer MEDICARE, MEDICAID ==
--- NOTE | 2019-01-29 08:55 | UC ---
Skin Complaint HPI - HPI Summary HPI Summary: 63 y/o male presents to the urgent care c/o tick bite on Rt hip for the past week. He though it was a pimple, but last night he pulled it off. He denies Hx of tick bites in the past. Pt states mild irritation 1/10 at touch. He has not seen any red rash other than the tick bite. Pt denies fever, CHERRY, joint pains, SOB, chest pain, abdominal pain, N/V/d. - History of Current Complaint Time Seen by Provider: 01/29/19 08:54 Stated Complaint: TICK BITE RT LEG Hx Obtained From: Patient Onset/Duration: Sudden Onset, Lasting Weeks - 1 week, Resolved - tick removal, Worse Since - yesterday Skin Exposure Onset/Duration: Weeks Ago - 1 week Timing: Constant Onset Severity: Mild Current Severity: Mild Pain Intensity: 1 Pain Scale Used: 0-10 Numeric Location: Discrete - tick bite on Rt thigh Character: Redness Aggravating Factor(s): Touch Alleviating Factor(s): Other - tick removal Associated Signs & Symptoms: Positive: Rash - tick bite on Rt thigh Related History: Possible Reaction to: Insect - tick - Allergy/Home Medications Allergies/Adverse Reactions: Allergies Allergy/AdvReac Type Severity Reaction Status Date / Time No Known Allergies Allergy Verified 01/29/19 09:02 Home Medications: Home Medications Sacubitril/Valsartan [Entresto 49 mg-51 mg Tablet] 1 each PO BID 01/29/19 [ History Confirmed 01/29/19] Sotalol TAB* [Betapace 80 MG TAB*] 40 mg PO BID 01/29/19 [History Confirmed ] PMH/Surg Hx/FS Hx/Imm Hx Previously Healthy: Yes Endocrine History: Dyslipidemia Cardiovascular History: Cardiac Disease, Hypertension GI/ History: Gastroesophageal Reflux Other GI/ History: constipation Psychological History: Depression - Surgical History Surgical History: Yes Surgery Procedure, Year, and Place: hernia x3. Fistula. Heart Bypass 2005 - Family History Known Family History: Positive: Cardiac Disease - mother and father, Hypertension - father, Other - CVA in father Family History: NON CONTRIBUTORY - Social History Occupation: Employed Full-time Lives: With Family Alcohol Use: None Substance Use Type: None Smoking Status (MU): Heavy Every Day Tobacco Smoker Type: Cigarettes Amount Used/How Often: 1ppd - Immunization History Most Recent Influenza Vaccination: 2018 Most Recent Tetanus Shot: last year Most Recent Pneumonia Vaccination: last year Review of Systems All Other Systems Reviewed And Are Negative: Yes Constitutional: Positive: Negative Skin: Positive: Other - tick bite on right thigh Eyes: Positive: Negative ENT: Positive: Negative Respiratory: Positive: Negative Cardiovascular: Positive: Negative Gastrointestinal: Positive: Negative Genitourinary: Positive: Negative Motor: Positive: Negative Neurovascular: Positive: Negative Musculoskeletal: Positive: Negative Neurological: Positive: Negative Psychological: Positive: Negative Is Patient Immunocompromised?: No Physical Exam - Summary Physical Exam Summary: Vital Signs Reviewed: Yes General: well developed, well nourished male sitting in the examining table w/o any apparent distress. Eyes: Positive: Conjunctiva Clear - PERRLA, EOMI ENT: Positive: Normal ENT inspection, Hearing grossly normal, Pharynx normal, TMs normal Neck: Positive: Supple, Nontender, No Lymphadenopathy Respiratory: Positive: Chest nontender, Lungs clear, Normal breath sounds Cardiovascular: Positive: RRR, No Murmur, Pulses Normal Abdomen Description: Positive: Nontender, No Organomegaly, Soft. Negative: CVA Tenderness (R), CVA Tenderness (L) Bowel Sounds: Positive: Present Musculoskeletal: Positive: Strength Intact, ROM Intact, No Edema Neurological Exam: Normal Psychological Exam: Normal Skin: Positive: rashes - Proximal medial aspect of RT upper posterior thigh with tick bite with surrounding erythema, non tender to palpation. tick no longer present, no swelling or drainage observed. Triage Information Reviewed: Yes Course/Dx - Course Course Of Treatment: 63 y/o male presents to the urgent care c/o tick bite on Rt hip for the past week. He though it was a pimple, but last night he pulled it off. He denies Hx of tick bites in the past. Pt states mild irritation 1/10 at touch. He has not seen any red rash other than the tick bite. Pt denies fever, CHERRY, joint pains, SOB, chest pain, abdominal pain, N/V/d. Hx obtained. Pt w/ Proximal medial aspect of RT upper posterior thigh with tick bite with surrounding erythema, non tender to palpation. tick no longer present, no swelling or drainage observed on examination. The area cleaned w/ alcohol swab. Antibiotic prophylaxis with Doxycycline given to the patient to prevent lyme Disease.. Pt tolerated well medication. Pt advised to observe the area for the development or Erythema Migrans for upto 30 days following exposure. Advised if he develops fever or erythema Migrans to return to the clinic or PCP for further treatment .d/C instructions explained. Pt understood and agreed with plan of care. - Differential Diagnoses - Skin Complaint Differential Diagnoses: Abscess, Local Allergic Reaction, Poison [place], Poison [place] , Tick Born Illness, Other - insect bite, bee sting - Diagnoses Provider Diagnosis: Tick bite of right thigh Discharge - Sign-Out/Discharge Documenting (check all that apply): Patient Departure - d/c home All imaging exams completed and their final reports reviewed: No Studies - Discharge Plan Condition: Stable Disposition: HOME Patient Education Materials: Tick Bite (ED) Referrals: Tito Hatch MD [Primary Care Provider] - 2 Weeks Karol KUMAR,Kg Charles [Medical Doctor] - If Needed Additional Instructions: 1- Please observe the area for the development or Erythema Migrans for upto 30 days following exposure. Components of the tick saliva can cause transient erythema that should not be confused with Erythema Migrans. If you develop the bull's eye rash, fever, joint pains please return to the urgent care or f/u with your PCP for further management. 2-Antibiotic prophylaxis with Doxycycline was given to you today to prevent lyme Disease. Lyme serology can be drawn in 2 weeks with your PCP or Dr Roberson to r/o Lyme disease since there is probability of negative results at early exposure. - Billing Disposition and Condition Condition: STABLE Disposition: Home
[2019-01-29 09:02] VITALS: BP 117/67
[2019-01-29] MEDS ORDERED: DOXYcycline CAP(*) 100 MG PO ONE (09:16)
== END 2019-01-29 09:23 | disposition home or self-care (01) ==
LOC: UCEAST 08:50
DX: T63.481A Toxic effect of venom of other arthropod, accidental (unintentional), initial encounter (principal); Y92.9 Unspecified place or not applicable; E78.5 Hyperlipidemia, unspecified; I10 Essential (primary) hypertension; F17.210 Nicotine dependence, cigarettes, uncomplicated; Z95.1 Presence of aortocoronary bypass graft
CPT/HCPCS: 99212; A9270-GY; G0463